=== PATIENT | male | born 1950 | race Caucasian/White ===

== ENCOUNTER 2017-05-03 09:58 | Inpatient (IN) | payer MEDICARE, BC ==
--- NOTE | 2017-05-03 10:12 | ER Document Report ---
ED General - General Stated Complaint: CHEST PAIN Time Seen by Provider: 05/03/17 10:05 Mode of Arrival: Ambulatory Information source: Patient Notes: 66-year-old male presents with complaints of cough fevers generalized malaise and confusion. Patient notes he has been coughing for the last couple days states he has not been feeling well is little confused patient denies any nausea or vomiting Patient noted to be febrile prior to arrival TRAVEL OUTSIDE OF THE [place] IN LAST 30 DAYS: No - HPI Onset: Other - 3 days Onset/Duration: Persistent Quality of pain: Achy Severity: Mild Pain Level: 1 Associated symptoms: Productive cough, Fever, Shortness of breath, Other Exacerbated by: Denies Relieved by: Denies Similar symptoms previously: No Recently seen / treated by doctor: No - Related Data Allergies/Adverse Reactions: hydroxychloroquine [From Plaquenil] Allergy (Verified 05/03/17 11:35) FULL BODY RASH FOR 3 MONTHS varenicline [From Chantix] Allergy (Verified 05/03/17 11:35) RASH Home Medications: Current Home Medications Acyclovir [Acyclovir 400 mg Tablet] 400 mg PO BID 05/03/17 [History] Adalimumab [Humira] 40 mg INJ [id number] 05/03/17 [History] Atorvastatin Calcium [Lipitor 40 mg Tablet] 40 mg PO DAILY 05/03/17 [History] Buspirone HCl [Buspar 10 mg Tablet] 10 mg PO BID 05/03/17 [History] Escitalopram Oxalate [Lexapro] 20 mg PO DAILY 05/03/17 [History] Lisinopril/Hydrochlorothiazide [Lisinopril-Hctz 20-25 mg Tab] 1 tab PO DAILY [History] Verapamil HCl [Verapamil Sr] 240 mg PO DAILY 05/03/17 [History] Past Medical History - Social History Smoking Status: Never Smoker Cigarette use (# per day): No Chew tobacco use (# tins/day): No Smoking Education Provided: No Family History: Reviewed & Not Pertinent - Past Medical History Cardiac Medical History: Reports: Hx Hypertension Denies: Hx Coronary Artery Disease, Hx Heart Attack Pulmonary Medical History: Denies: Hx Asthma, Hx Bronchitis, Hx COPD - SMOKER, Hx Pneumonia Neurological Medical History: Denies: Hx Cerebrovascular Accident, Hx Seizures Musculoskeltal Medical History: Reports Hx Arthritis - RHEUMATOID, PELIMDROMIC RHEUMATISM - Immunizations Hx Diphtheria, Pertussis, Tetanus Vaccination: - UNSURE Hx Pneumococcal Vaccination: 02/04/14 Review of Systems - Review of Systems Notes: REVIEW OF SYSTEMS: CONSTITUTIONAL : Admits fever recent illness EENT: Denies eye, ear, throat, or mouth pain or symptoms. Denies nasal or sinus congestion or discharge. Denies throat, tongue, or mouth swelling or difficulty swallowing. CARDIOVASCULAR: Denies chest pain. Denies palpitations or racing or irregular heart beat. Denies ankle edema. RESPIRATORY: Admits to cough congestion GASTROINTESTINAL: Denies abdominal pain or distention. Denies nausea, vomiting , or diarrhea. Denies blood in vomitus, stools, or per rectum. Denies black, tarry stools. Denies constipation. GENITOURINARY: Denies difficulty urinating, painful urination, burning, frequency, blood in urine, or discharge. MUSCULOSKELETAL: Denies back or neck pain or stiffness. Denies joint pain or swelling. SKIN: Denies rash, lesions or sores. HEMATOLOGIC : Denies easy bruising or bleeding. LYMPHATIC: Denies swollen, enlarged glands. NEUROLOGICAL: Denies confusion or altered mental status. Denies passing out or loss of consciousness. Denies dizziness or lightheadedness. Denies headache. Denies weakness or paralysis or loss of use of either side. Denies problems with gait or speech. Denies sensory loss, numbness, or tingling. Denies seizures. PSYCHIATRIC: Denies anxiety or stress. Denies depression, suicidal ideation, or homicidal ideation. ALL OTHER SYSTEMS REVIEWED AND NEGATIVE. PHYSICAL EXAMINATION: GENERAL: Ill-appearing HEAD: Atraumatic, normocephalic. EYES: Pupils equal round and reactive to light, extraocular movements intact, conjunctiva are normal. ENT: Nares patent, oropharynx clear without exudates. Moist mucous membranes. NECK: Normal range of motion, supple without lymphadenopathy LUNGS: Coarse rhonchi HEART: Tachycardic ABDOMEN: Soft, nontender, nondistended abdomen. No guarding, no rebound. No masses appreciated. Female : deferred Musculoskeletal: Normal range of motion, no pitting or edema. No cyanosis. NEUROLOGICAL: Cranial nerves grossly intact. Normal speech, normal gait. Normal sensory, motor exams PSYCH: Normal mood, normal affect. SKIN: Warm, Dry, normal turgor, no rashes or lesions noted. Dictation was performed using [employer] voice recognition software Physical Exam - Vital signs Vitals: Temp Pulse Resp BP Pulse Ox 100.5 F H 93 21 H 125/64 95 05/03/17 10:25 05/03/17 10:25 05/03/17 10:25 05/03/17 10:25 05/03/17 10:25 Course - Re-evaluation Re-evalutation: 05/03/17 13:00 Patient was placed on oxygen, his presentation is consistent with sepsis secondary from pneumonia. Patient was started on antibiotics given IV fluids and will be admitted to the hospitalist service - Vital Signs Vital signs: Temp Pulse Resp BP Pulse Ox 100.1 F 93 20 114/67 95 05/03/17 11:57 05/03/17 10:25 05/03/17 12:01 05/03/17 12:01 05/03/17 12:01 - Laboratory Result Diagrams: 05/03/17 10:28 05/03/17 10:28 Laboratory results interpreted by me: 05/03/17 05/03/17 05/03/17 10:28 10:28 10:28 WBC 13.3 H RBC 3.34 L Hgb 12.3 L Hct 35.9 L MCV 107 H MCH 36.7 H Seg Neuts % (Manual) 87 H Lymphocytes % (Manual) 4 L Abs Neuts (Manual) 11.6 H VBG pH 7.48 H Sodium 126.9 L Chloride 91 L BUN 21 H Glucose 125 H Urine Protein Urine Ketones Urine Blood Urine Ascorbic Acid 05/03/17 10:48 WBC RBC Hgb Hct MCV MCH Seg Neuts % (Manual) Lymphocytes % (Manual) Abs Neuts (Manual) VBG pH Sodium Chloride BUN Glucose Urine Protein 100 H Urine Ketones TRACE H Urine Blood MODERATE H Urine Ascorbic Acid 40 H - Diagnostic Test Radiology reviewed: Image reviewed, Reports reviewed - Pneumonia Critical Care Note - Critical Care Note Total time excluding time spent on procedures (mins): 33 Comments: 33 minutes of critical care time spent in direct contact evaluating and reevaluating the patient, treating symptoms, reviewing labs and studies and speaking with family and consultants excluding any procedures Discharge - Discharge Clinical Impression: Pneumonia Qualifiers: Pneumonia type: due to unspecified organism Laterality: left Lung location: upper lobe of lung Qualified Code(s): J18.1 - Lobar pneumonia, unspecified organism Sepsis Qualifiers: Sepsis type: sepsis due to unspecified organism Qualified Code(s): A41.9 - Sepsis, unspecified organism Condition: Stable Disposition: ADMITTED INPATIENT Admitting Provider: Hospitalist Unit Admitted: Telemetry
--- NOTE | 2017-05-03 10:42 | RADIOLOGY REPORT (SQ) ---
EXAM DESCRIPTION: CHEST SINGLE VIEW COMPLETED DATE/TIME: 05/03/2017 10:32 am REASON FOR STUDY: fever COMPARISON: None. EXAM PARAMETERS: NUMBER OF VIEWS: One view. TECHNIQUE: Single frontal radiographic view of the chest acquired. RADIATION DOSE: NA LIMITATIONS: None. FINDINGS: LUNGS AND PLEURA: Dense consolidation in the lateral left upper lobe. Right lung clear. No pleural effusion. No pneumothorax. MEDIASTINUM AND HILAR STRUCTURES: No masses. Contour normal. HEART AND VASCULAR STRUCTURES: Heart normal in size. Normal vasculature. BONES: No acute findings. HARDWARE: None in the chest. OTHER: No other significant finding. IMPRESSION: DENSE CONSOLIDATION IN THE LEFT UPPER LOBE LIKELY DUE TO PNEUMONIA. UNDERLYING MASS CAN NOT BE EXCLUDED. RECOMMEND FOLLOW-UP CHEST X-RAY AFTER TREATMENT TO CONFIRM CLEARING OF THIS FINDING . TECHNICAL DOCUMENTATION: JOB ID: [id number] [employer]- All Rights Reserved
[2017-05-03 10:48] LABS: HEMATOCRIT 35.9 % (37.9-51.0); HEMOGLOBIN 12.3 g/dL (13.5-17.0); MEAN CORPUSCULAR HEMOGLOBIN 36.7 pg (27.0-33.4); MEAN CORPUSCULAR HGB CONC 34.2 g/dL (32.0-36.0); MEAN CORPUSCULAR VOLUME 107 fl (80-97); PLATELET COUNT 215 10^3/uL (150-450); RED BLOOD COUNT 3.34 10^6/uL (4.35-5.55); RED CELL DISTRIBUTION WIDTH 12.5 % (11.5-14.0); WHITE BLOOD COUNT 13.3 10^3/uL (4.0-10.5)
[2017-05-03 10:52] LABS: INTERNATIONAL RATION (INR) 0.96; PROTHROMBIN TIME 13.4 SEC (11.4-15.4); VENOUS BLOOD HCO3 27.7 mmol/L (20-32); VENOUS BLOOD PCO2 37.9 mmHg (35-63); VENOUS BLOOD PH 7.48 (7.30-7.42)
[2017-05-03 11:07] LABS: ABSOLUTE LYMPHOCYTES# (MANUAL) 0.5 10^3/uL (0.5-4.7); ABSOLUTE MONOCYTES # (MANUAL) 1.1 10^3/uL (0.1-1.4); ABSOLUTE NEUTROPHILS# (MANUAL) 11.6 10^3/uL (1.7-8.2); ANISOCYTOSIS 2+; BASOPHILS % (MANUAL) 1 % (0-2); EOSINOPHILS % (MANUAL) 0 % (0-6); LYMPHOCYTES % (MANUAL) 4 % (13-45); MONOCYTES % (MANUAL) 8 % (3-13); PLATELET COMMENT ADEQUATE; PLATELET LARGE PRESENT; POLYCHROMASIA SLIGHT; SEGMENTED NEUTROPHILS % (MAN) 87 % (42-78); TOTAL CELLS COUNTED 100; TOXIC GRANULATION SLIGHT; TOXIC VACUOLATION PRESENT
[2017-05-03 11:11] LABS: ALANINE AMINOTRANSFERASE 29 U/L (21-72); ALBUMIN 3.7 g/dL (3.5-5.0); ALKALINE PHOSPHATASE 38 U/L (38-126); ANION GAP 11 (5-19); ASPARTATE AMINO TRANSFERASE 27 U/L (17-59); BILIRUBIN,DIRECT 0.3 mg/dL (0.0-0.4); BILIRUBIN,TOTAL 0.6 mg/dL (0.2-1.3); BLOOD UREA NITROGEN 21 mg/dL (7-20); CALCIUM 9.3 mg/dL (8.4-10.2); CARBON DIOXIDE 25 mmol/L (22-30); CHLORIDE 91 mmol/L (98-107); GLUCOSE 125 mg/dL (75-110); POTASSIUM 3.9 mmol/L (3.6-5.0); SODIUM 126.9 mmol/L (137-145); TOTAL PROTEIN 6.4 g/dL (6.3-8.2)
[2017-05-03] MEDS ORDERED: NORMAL SALINE 1000 ML 1,000 ML IV ONE (11:23)
[2017-05-03 11:25] LABS: APPEARANCE,URINE SLIGHTLY-CLOUDY; BILIRUBIN,URINE NEGATIVE (NEGATIVE); COLOR,URINE YELLOW; GLUCOSE, URINE NEGATIVE (NEGATIVE); KETONES,URINE TRACE mg/dL (NEGATIVE); LEUKOCYTE ESTERASE,URINE NEGATIVE (NEGATIVE); NITRITE,URINE NEGATIVE (NEGATIVE); PROTEIN,URINE 100 mg/dL (NEGATIVE); URINE SPECIFIC GRAVITY 1.028; UROBILINOGEN,URINE NEGATIVE mg/dL (<2.0)
[2017-05-03] MEDS ORDERED: CEFTRIAXONE 1 GM/D5W RTU 1 GM/50 ML RTUPB IV ONE (11:37)
[2017-05-03] MEDS: NORMAL SALINE 1000 ML 1,000 ML IV PRN ×2 (11:40→13:48)
[2017-05-03] MEDS ORDERED: ACETAMINOPHEN 325 MG TABLET PO PRN (11:53)
[2017-05-03 12:33] LABS: A TYPE INFLUENZA AG NEGATIVE (NEGATIVE); B INFLUENZA AG NEGATIVE (NEGATIVE)
[2017-05-03] MEDS: AZITHROMYCIN 500 MG in DEXTROSE 5%-WATER 250 ML IV SCH (13:49)
[2017-05-03] MEDS: HEPARIN SOD (PORCINE) 5,000 UNIT/ML 1 ML SYRINGE SUBCUT SCH ×2 (13:50→21:33)
[2017-05-03] MEDS ORDERED: FLUTICASONE NASAL SPRAY 50 MCG/SPRY 120 SPRAY/16 GM NASL ONE (17:26)
[2017-05-03] MEDS ORDERED: NICOTINE 14 MG/24 HR PATCH.TD24 TD PRN (17:27)
[2017-05-03] MEDS ORDERED: THIAMINE HCL 100 MG TABLET PO ONE (17:28)
[2017-05-03] MEDS ORDERED: FOLIC ACID 1 MG TABLET PO ONE (17:28)
[2017-05-03] MEDS ORDERED: VERAPAMIL HCL 240 MG PO SCH (17:30)
[2017-05-03] MEDS: BEER PO SCH ×3 (17:45→21:35)
[2017-05-03] MEDS: BUSPIRONE HCL 10 MG TABLET PO SCH (18:00)
[2017-05-03] MEDS: DOCUSATE SODIUM 100 MG CAPSULE PO SCH (18:01)
--- NOTE | 2017-05-03 18:48 | HISTORY AND PHYSICAL E ---
History and Physical NAME: CIARA EATON : 1950 AGE: 66Y ADMITTED: 05/03/2017 ROOM: 532 PRIMARY CARE PROVIDER: Dr. Price. CHIEF COMPLAINT: Shortness of breath. HISTORY OF PRESENT ILLNESS: The patient is a 66-year-old male with a past medical history of hypertension, tobacco dependency and rheumatoid arthritis. The patient presented to the emergency department with a chief complaint of shortness of breath. Apparently the patient has had complaints of cough, fevers, general malaise and some confusion, which has been going on for the past couple of days. The patient stated he had not been feeling well and stated that he had had a fever and felt confused with this. The patient denied any actual vomiting but admitted to nausea. The patient had a very strong cough and was producing significant amount of yellow sputum. The patient denies any difficulty swallowing, no dizziness, chest pain or shortness of breath. The patient stated he was so concerned with how poorly he felt that he had actually not smoked today. Upon presentation the patient was found to have a low-grade temp of 100.3, tachycardic and tachypneic. The patient was given supplemental O2, Tylenol and covered with Rocephin and was referred to the hospitalist for admission and management. Upon my examination of the patient, the patient denies any previous pneumonia. The patient denies any sick contacts. The patient stated that his symptoms have been ever increasing over the past 4 days. The patient states that he has not had much sleep because he has felt so poorly and, therefore, feels delirious. One element of concern is the patient is alcohol dependent and drinks up to 8-10 ounces of vodka a day, however, do suspect there is more than this. I have asked the patient if he would like to stop drinking, and he declines this as well as declines stopping smoking, therefore, will supplement both alcohol and a nicotine patch for now. PAST MEDICAL HISTORY: Remarkable for: 1. Hypertension. 2. Chronic obstructive pulmonary disease. 3. Gastroesophageal reflux disease. 4. History of effectively treated H. pylori. 5. Osteoarthritis. 6. Rheumatoid arthritis. 7. Palindromic rheumatism. 8. Benign prostatic hyperplasia. 9. Alcohol dependency. PAST SURGICAL HISTORY: Remarkable for: 1. EGD. 2. Left shoulder surgery. 3. Left inguinal hernia repair. 4. 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 5. Appendectomy. 6. Tonsillectomy. ALLERGIES: HYDROXYCHLOROQUINE VARENICLINE. HOME MEDICATIONS: 1. Verapamil 240 mg p.o. daily. 2. Lisinopril/hydrochlorothiazide 20/25 one tablet p.o. daily. 3. Lexapro 20 mg p.o. daily. 4. BuSpar 10 mg p.o. b.i.d. 5. Lipitor 40 mg p.o. daily. 6. Humira 40 mg injection every 2 weeks. 7. Acyclovir 400 mg p.o. b.i.d. SOCIAL HISTORY: The patient currently resides at home. He is retired. 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 The patient denies any illicit drug use. The patient admits to alcohol dependence, stating that he gets shaky if he goes several hours without a drink. The patient also has tobacco dependency, smoking once a day for which he has done for a little over 40 years, escalating 40 pack years. FAMILY MEDICAL HISTORY: The patient's mother is alive with no reportable medical problems. The patient's father is of uncertain causes. The patient does have siblings who are healthy. The patient has no children. REVIEW OF SYSTEMS: CONSTITUTIONAL: The patient does admit to fevers, chills, weakness, loss of appetite, no dizziness. INTEGUMENTARY: The patient denies any itching, diaphoresis. No rash or bruising. HEENT: The patient denies any vision changes, hearing loss which the patient is deaf in his left ear but nothing acute. Denies any sore throat. Does admit to some headache but no nasal drainage. CARDIOVASCULAR: The patient denies any chest pain, edema or heart palpitations. RESPIRATORY: The patient admits to cough, sputum production and an episode of hemoptysis. GASTROINTESTINAL: The patient denies any diarrhea, abdominal pain, bloating, hematemesis, constipation, melena, hematochezia. He does admit to nausea. GENITOURINARY: Denies any hematuria, pyuria or dysuria. MUSCULOSKELETAL: Denies acute joint pains but has chronic pain associated with his RA. NEUROLOGIC: No seizures or loss of consciousness. The patient does have fine tremors without alcohol. HEMATOLOGIC: The patient denies any mary bleeding or easy bruising. ENDOCRINE: Denies any recent weight changes. PSYCHIATRIC: Denies suicidal or homicidal ideation. The patient is adamant he does not want to abstain from alcohol. The rest of the review of the other organ systems is negative. PHYSICAL EXAMINATION: GENERAL: On examination, the patient is a well-developed, well-nourished 66-year-old male who is awake and alert. He is oriented to person, place, time and situation. He is verbal, conversational. He does not appear to be in any acute distress. VITAL SIGNS: Temperature 99.5, pulse 102, respirations 20, blood pressure 140/72, oxygen saturation is 95% on room air. SKIN: Warm and dry. No rash. He is not diaphoretic. HEENT: Pupils are equal, round, and reactive to light and accommodation. Conjunctivae are pink. Sclerae are not icteric. There are no mouth lesions. Tongue is midline. NECK: Supple. No JVD. No palpable lymphadenopathy or thyromegaly. CARDIOVASCULAR: Heart is regular. There is no murmur or rub. CHEST: The patient does have rhonchorous breath sounds in the upper lung dale. ABDOMEN: Soft, nontender, nondistended. Bowel sounds are present. No palpable organomegaly. BACK: No CVA tenderness or sacral edema. EXTREMITIES: No clubbing, cyanosis, edema or peripheral signs of embolization. There are +1 pedal pulses are noted bilaterally. PSYCHIATRIC: The patient is a little delayed. DIAGNOSTICS: Lab values are as follows: Hematology on 05/03/2017: WBC 13.3, hemoglobin 12.3, hematocrit 35.9, platelet count is 215,000. Coagulation obtained on 05/03/2017: PT is 13.4, INR 0.96. Venous blood gas obtained on 05/03/2017: pH is 7.48, PCO2 37.9, bicarb is 27.7. Chemistry obtained on 03/21/2017: Sodium is 126, potassium 3.9, chloride is 91, carbon dioxide is 25, BUN 21, creatinine 0.9, glucose 125, lactic acid 0.9, calcium is 9.3, bilirubin is 0.6, AST is 27, ALT is 29, alkaline phos 38, total protein 6.4, albumin 3.7. Urinalysis obtained on 05/03/2017: Color yellow appearance, slightly cloudy, pH 6.0, specific gravity 1.028, protein 100, glucose negative, ketones trace, occult blood moderate, nitrite negative, bilirubin negative, urobilinogen negative, leukocyte esterase negative. WBC 4, RBC 66, casts 3, epithelial squamous cells less than 1, mucus few, ascorbic acid is 40. Serology obtained on 05/03/2017: Influenza A and B are negative. Blood cultures obtained on 05/03/2017 revealed no growth. Urine culture obtained on 05/03/2017 is pending. Legionella obtained on 05/03/2017 is pending. Sputum culture obtained on 05/03/2017 is pending. Chest x-ray obtained on 05/03/2017 reveals dense consolidation of the left upper lobe likely due to pneumonia. EKG obtained on 05/03/2017 reveals sinus rhythm. IMPRESSION AND PLAN: 1. Left upper lobe community-acquired pneumonia. Will cover the patient with Rocephin and Zithromax for now. Await for culture and sensitivity and follow. Will add Mucinex and flutter valve as well as incentive spirometry. The patient does not appear dyspneic, therefore, will hold nebs for now. 2. Chronic obstructive pulmonary disease. Will continue the patient's home inhalers. Additionally will add Singulair and Flonase. The patient is not wheezing. Once again, will hold nebs for now, attempt to use them sparingly at this point. 3. Hypertension. Will resume the patient's home blood pressure medication. 4. Benign prostatic hyperplasia. Will continue the patient's home meds. 5. Sepsis secondary to #1. The patient has received boluses in the emergency department. This is evidenced by white count, febrile state and confusion. Will repeat CBC in the a.m. Fortunately the patient was not making lactate. 6. Hyponatremia. Most likely due to the patient's chronic alcoholism or possible volume issue. The patient did receive fluid in the emergency department. Will repeat CBC in the a.m. Will not add continuous fluids at the moment, as the patient clinically appears hydrated and this may be a further source of agitation. 7. Alcohol dependency, continuous. I am concerned given the patient's respiratory status initiating a CIWA withdrawal protocol. The patient does appear to be on the edge at the moment of impending withdrawal. Will add a beer q.i.d. If this does not curb this, will proceed with CIWA protocol with p.r.n. benzodiazepines and so forth. Once again, quite hesitant to do this given the patient's respiratory status. Hopefully the beer supplementation will curb this. DISPOSITION: The patient is a FULL CODE. Pending patient's symptomatology and diagnostic findings, will reevaluate in the a.m. Will admit the patient to inpatient telemetry, as the patient's expected length of stay should surpass 2 midnights. Time spent on this admission including assessment, plan, physical examination, patient education, and review of records is 60 minutes. DICTATING PHYSICIAN: MELECIO AGUILAR NP [id number] PHY#: [id number] ID: [id number] JOB#: [id number] ACCT: [id number] cc:MELECIO AGUILAR NP, NADIA M.D. >
[2017-05-03] MEDS: GUAIFENESIN 600 MG TABLET.SA PO SCH (21:34)
[2017-05-03] MEDS: FLUTICASONE NASAL SPRAY 50 MCG/SPRY 120 SPRAY/16 GM NASL SCH (21:34)
[2017-05-03] MEDS: MONTELUKAST SODIUM 10 MG TABLET PO SCH (21:34)
[2017-05-03] MEDS: ACYCLOVIR 200 MG CAPSULE PO SCH (21:34)
[2017-05-03] MEDS: LORAZEPAM 1 MG TABLET PO PRN (23:00)
[2017-05-04] MEDS: MAGNESIUM SULFATE/D5W 1 GM/100 ML RTUPB IV SCH ×3 (01:48→05:18)
[2017-05-04] MEDS: HEPARIN SOD (PORCINE) 5,000 UNIT/ML 1 ML SYRINGE SUBCUT SCH ×3 (05:18→21:10)
[2017-05-04 07:03] LABS: HEMATOCRIT 33.4 % (37.9-51.0); HEMOGLOBIN 11.6 g/dL (13.5-17.0); MEAN CORPUSCULAR HEMOGLOBIN 37.6 pg (27.0-33.4); MEAN CORPUSCULAR HGB CONC 34.7 g/dL (32.0-36.0); MEAN CORPUSCULAR VOLUME 108 fl (80-97); PLATELET COUNT 182 10^3/uL (150-450); RED BLOOD COUNT 3.09 10^6/uL (4.35-5.55); RED CELL DISTRIBUTION WIDTH 12.7 % (11.5-14.0); WHITE BLOOD COUNT 9.3 10^3/uL (4.0-10.5)
[2017-05-04 07:28] LABS: ANION GAP 6 (5-19); BLOOD UREA NITROGEN 16 mg/dL (7-20); CALCIUM 8.1 mg/dL (8.4-10.2); CARBON DIOXIDE 26 mmol/L (22-30); CHLORIDE 92 mmol/L (98-107); GLUCOSE 106 mg/dL (75-110); POTASSIUM 3.7 mmol/L (3.6-5.0); SODIUM 124.3 mmol/L (137-145)
[2017-05-04] MEDS: ACYCLOVIR 200 MG CAPSULE PO SCH ×2 (09:26→21:15)
[2017-05-04] MEDS: ATORVASTATIN CALCIUM 40 MG TABLET PO SCH (09:26)
[2017-05-04] MEDS: BUSPIRONE HCL 10 MG TABLET PO SCH ×2 (09:27→19:45)
[2017-05-04] MEDS: FOLIC ACID 1 MG TABLET PO SCH (09:28)
[2017-05-04] MEDS: DOCUSATE SODIUM 100 MG CAPSULE PO SCH ×2 (09:28→19:45)
[2017-05-04] MEDS: FLUTICASONE NASAL SPRAY 50 MCG/SPRY 120 SPRAY/16 GM NASL SCH ×2 (09:28→21:15)
[2017-05-04] MEDS: GUAIFENESIN 600 MG TABLET.SA PO SCH ×2 (09:28→21:09)
[2017-05-04] MEDS: VERAPAMIL HCL 240 MG TABLET.SA PO SCH (09:28)
[2017-05-04] MEDS: THIAMINE HCL 100 MG TABLET PO SCH (09:29)
[2017-05-04] MEDS ORDERED: CEFTRIAXONE 1 GM/D5W RTU 1 GM/50 ML RTUPB IV SCH (10:00)
[2017-05-04] MEDS ORDERED: THIAMINE HCL 100 MG TABLET PO SCH (10:00)
[2017-05-04] MEDS ORDERED: ALBUTEROL SULFATE 0.083% NEB 2.5 MG/3 ML AMPUL NEB PRN (10:03)
[2017-05-04] MEDS ORDERED: PREDNISONE 20 MG TABLET PO ONE (11:00)
[2017-05-04] MEDS ORDERED: IPRATROPIUM/ALBUTEROL 0.5-2.5 MG/3 ML AMPUL NEB ONE (11:00)
[2017-05-04] MEDS ORDERED: IPRATROPIUM/ALBUTEROL 0.5-2.5 MG/3 ML AMPUL NEB SCH (14:00)
[2017-05-04] MEDS: BEER PO SCH ×3 (14:50→22:31)
[2017-05-04] MEDS: AZITHROMYCIN 500 MG in DEXTROSE 5%-WATER 250 ML IV SCH (14:56)
--- NOTE | 2017-05-04 16:57 | PDOC PROGRESS REPORT ---
Subjective Progress Note for:: 05/04/17 Subjective:: 66-year-old male past medical history of alcoholism. Came in with complaints of cough, fever, confusion. Patient had a x-ray that showed middle lobe pneumonia but cannot rule out mass. Patient was started on supplemental O2 antibiotics and alcohol withdrawal protocol. Patient was not started on nebulizers or steroids time of admission at I had added the earlier today due to his decrease oxygen saturation with he increase O2 demand. Patient continued to require increased amounts of oxygen with decreased O2 sats so I have requested he be transferred to IMCU, obtain an ABG, placed on BiPAP if needed, will get a CT of his chest to r/o PE. Reason For Visit: CAP Physical Exam Vital Signs: Temp Pulse Resp BP Pulse Ox 98.5 F 83 19 104/54 L 86 L 05/04/17 16:00 05/04/17 16:00 05/04/17 16:00 05/04/17 16:00 05/04/17 16:00 Intake & Output 05/03/17 05/04/17 05/05/17 06:59 06:59 06:59 Intake Total 300 615 Output Total 0 575 Balance 300 40 Weight 81.1 kg General appearance: PRESENT: mild distress, well-developed, well-nourished Head exam: PRESENT: atraumatic, normocephalic Eye exam: PRESENT: conjunctiva pink, EOMI, PERRLA. ABSENT: scleral icterus Ear exam: PRESENT: normal external ear exam Mouth exam: PRESENT: moist, tongue midline Neck exam: ABSENT: carotid bruit, JVD, lymphadenopathy, thyromegaly Respiratory exam: PRESENT: accessory muscle use, chest wall tenderness, decreased breath sounds, rales, rhonchi, tachypnea, wheezes Cardiovascular exam: PRESENT: RRR. ABSENT: diastolic murmur, rubs, systolic murmur Pulses: PRESENT: normal dorsalis pedis pul Vascular exam: PRESENT: normal capillary refill GI/Abdominal exam: PRESENT: normal bowel sounds, soft. ABSENT: distended, guarding, mass, organolmegaly, rebound, tenderness Rectal exam: PRESENT: deferred Extremities exam: PRESENT: full ROM. ABSENT: calf tenderness, clubbing, pedal edema Musculoskeletal exam: PRESENT: ambulatory Neurological exam: PRESENT: alert, awake, oriented to person, oriented to place , oriented to time, oriented to situation, CN II-XII grossly intact. ABSENT: motor sensory deficit Psychiatric exam: PRESENT: anxious, appropriate affect, normal mood. ABSENT: homicidal ideation, suicidal ideation Skin exam: PRESENT: dry, intact, warm. ABSENT: cyanosis, rash Results Laboratory Results: 05/04/17 06:53 05/04/17 06:53 05/03/17 05/04/17 05/04/17 23:00 06:53 06:53 WBC 9.3 RBC 3.09 L Hgb 11.6 L Hct 33.4 L MCV 108 H MCH 37.6 H MCHC 34.7 RDW 12.7 Plt Count 182 Sodium 124.3 L Potassium 3.7 Chloride 92 L Carbon Dioxide 26 Anion Gap 6 BUN 16 Creatinine 0.99 Est GFR ( Amer) > 60 Est GFR (Non-Af Amer) > 60 Glucose 106 Calcium 8.1 L Magnesium 1.5 L Impressions: Chest X-Ray 05/03/17 10:07 IMPRESSION: DENSE CONSOLIDATION IN THE LEFT UPPER LOBE LIKELY DUE TO PNEUMONIA. UNDERLYING MASS CANNOT BE EXCLUDED. RECOMMEND FOLLOW-UP CHEST X- RAY AFTER TREATMENT TO CONFIRM CLEARING OF THIS FINDING. Assessment & Plan - Diagnosis (1) Dyspnea Qualifiers: Dyspnea type: acute respiratory distress Qualified Code(s): R06.03 - Acute respiratory distress Is this a current diagnosis for this admission?: Yes Plan: Obtain an ABG, assess for need of BiPAP, will get a chest CT to rule out PE. Continue nebulizers, steroids, antibiotics. We will have nurse to call the ABGs in 2 hospitalists when resulted. Transfer patient to [facility]. Titrate O2 keep oxygen greater than 90% monitor closely for DTs, pressure patient on telemetry (3) Pneumonia Qualifiers: Pneumonia type: due to unspecified organism Laterality: left Lung location: upper lobe of lung Qualified Code(s): J18.1 - Lobar pneumonia, unspecified organism Is this a current diagnosis for this admission?: Yes (4) Sepsis Qualifiers: Sepsis type: sepsis due to unspecified organism Qualified Code(s): A41.9 - Sepsis, unspecified organism Is this a current diagnosis for this admission?: Yes Plan: Patient to have IV antibiotics, steroids, nebulizers, O2 as needed to titrate to keep sats greater than 90% rule out pulmonary embolus, will obtain repeat blood cultures if patient spikes a temp, continue to monitor cultures - Plan Summary Plan Summary: Patient have a change in status requiring increased amounts of 2 unable to stabilize patient on the floor so we will transfer him to intermediate care for close monitoring of his O2 sats and heart rate, and possible need of BiPAP. Monitor ABGs, aggressive pulmonary toiletry
[2017-05-04] MEDS ORDERED: METHYLPREDNISOLONE INJ 125 MG/2 ML SDV IV SCH (17:00)
[2017-05-04 17:16] LABS: ARTERIAL BLOOD BASE EXCESS -0.1 mmol/L; ARTERIAL BLOOD H2CO3 0.89 mmol/L (1.05-1.35); ARTERIAL BLOOD HCO3 22.4 mmol/L (20-26); ARTERIAL BLOOD O2 SATURATION 84.3 % (94-98); ARTERIAL BLOOD PCO2 29.5 mmHg (35-45); ARTERIAL BLOOD PO2 43.5 mmHg (80-100); ARTERIAL BLOOD TOTAL CO2 23.3 mmol/L (23-27)
[2017-05-04 17:33] LABS: ARTERIAL BLOOD FIO2 6L
--- NOTE | 2017-05-04 17:41 | RADIOLOGY REPORT (SQ) ---
EXAM DESCRIPTION: CHEST SINGLE VIEW COMPLETED DATE/TIME: 05/04/2017 5:30 pm REASON FOR STUDY: r/o chf COMPARISON: 05/03/2017 EXAM PARAMETERS: NUMBER OF VIEWS: One view. TECHNIQUE: Single frontal radiographic view of the chest acquired. RADIATION DOSE: NA LIMITATIONS: None. FINDINGS: LUNGS AND PLEURA: Increased consolidation in the left upper lobe with development of new a lveolar opacity -consolidation in the right upper lobe. Mild interstitial prominence. No significan t effusion. No pneumothorax. MEDIASTINUM AND HILAR STRUCTURES: Stable. HEART AND VASCULAR STRUCTURES: Stable cardiac enlargement. BONES: No acute findings. HARDWARE: None in the chest. OTHER: No other significant finding. IMPRESSION: Increased consolidation in the left upper lobe with development of new alveolar opacity -consolidation in the right upper lobe. Mild interstitial prominence. No significant effusion. TECHNICAL DOCUMENTATION: JOB ID: [id number] [employer]- All Rights Reserved
--- NOTE | 2017-05-04 18:52 | RADIOLOGY REPORT (SQ) ---
EXAM DESCRIPTION: CTA CHEST COMPLETED DATE/TIME: 05/04/2017 6:27 pm REASON FOR STUDY: r/omass or PE COMPARISON: None. TECHNIQUE: CT scan of the chest performed using helical scanning technique with dynamic intravenous contrast injection. Images reviewed with lung, soft tissue and bone windows. Reconstructed coronal and sagittal MPR images reviewed. Additional 3 dimensional post-processing performed to develop Maximal Intensity Projection images ([place] P). All images stored on PACS. All CT scanners at this facility use dose modulation, iterative reconstruction, and/or weight based d osing when appropriate to reduce radiation dose to as low as reasonably achievable (ALARA). [facility]: Dose Right [facility]: CareDose [facility]: Dose Right [facility]: Teradose 4D [facility]: Smart [employer] CONTRAST TYPE AND DOSE: contrast/concentration: Isovue 370.00 mg/ml; Total Contrast Delivered: 72.0 ml; Total Saline Delivered: 80.1 ml Contrast bolus optimized for the pulmonary arteries. Not diagnostic for the aorta. RENAL FUNCTION: GFR > 60. RADIATION DOSE: CT Rad equipment meets quality standard of care and radiation dose reduction techniq ues were employed. CTDIvol: 14.8 - 39.7 mGy. DLP: 622 mGy-cm. . LIMITATIONS: None. FINDINGS: LUNGS AND PLEURA: Dense consolidation is present in the lateral aspect of the left upper l obe. Patchy consolidation is present in the central and lateral aspects of the right upper lobe. In terstitial and ground-glass opacities are present throughout both upper lobes. Linear atelectasis is present in both lower lobes. Small bilateral pleural effusions are present. No pneumothorax. Smal l apical subpleural blebs. Small areas of paraseptal emphysema are present along the mediastinal bor ders. AORTA AND GREAT VESSELS: 4.5 cm ascending aortic aneurysm. Contrast bolus not optimized for the aort a. HEART: No pericardial effusion. No significant coronary artery calcifications. PULMONARY ARTERIES: No emboli visualized in the main pulmonary arteries or the segmental branches. HILAR AND MEDIASTINAL STRUCTURES: Diffuse mediastinal adenopathy, reactive appearing. HARDWARE: None in the chest. UPPER ABDOMEN: Left renal cyst. Mild retroperitoneal fat stranding. Limited exam. THYROID AND OTHER SOFT TISSUES: No masses. BONES: No acute finding. 3D MIPS: Confirm above findings. OTHER: No other significant finding. IMPRESSION: Dense consolidation is present in the lateral aspect of the left upper lobe. Patchy con solidation is present in the central and lateral aspects of the right upper lobe. Interstitial and g round-glass opacities are present throughout both upper lobes. Small bilateral pleural effusions ar e present. Diffuse mediastinal adenopathy, reactive appearing. Overall appearance suggests acute infe ctious etiology. No emboli visualized in the main pulmonary arteries or the segmental branches. COMMENT: Quality ID # [id number]: Final reports with documentation of one or more dose reduction techniques (e.g., Automated exposure control, adjustment of the mA and/or kV according to patient size, use of iterative reconstruction technique) TECHNICAL DOCUMENTATION: JOB ID: [id number] [place]-72 2010 [email or web address]- All Rights Reserved
[2017-05-04] MEDS ORDERED: VANCOMYCIN HCL 0 MG in DEXTROSE 5%-WATER 250 ML IV NR (19:30)
[2017-05-04] MEDS ORDERED: LORAZEPAM INJ 2 MG/1 ML VIAL IV ONE (19:43)
[2017-05-04] MEDS: NORMAL SALINE 1000 ML 1,000 ML IV PRN (19:47)
[2017-05-04] MEDS: IPRATROPIUM/ALBUTEROL 0.5-2.5 MG/3 ML AMPUL NEB SCH (20:29)
[2017-05-04] MEDS: METHYLPREDNISOLONE INJ 125 MG/2 ML SDV IV SCH (21:08)
[2017-05-04] MEDS: PIPERACILLIN SODIUM/TAZOBACTAM 4.5 GM in NORMAL SALINE 100 ML IV SCH (21:08)
[2017-05-04] MEDS: MONTELUKAST SODIUM 10 MG TABLET PO SCH (21:10)
[2017-05-04 21:12] LABS: ARTERIAL BLOOD BASE EXCESS 2.1 mmol/L; ARTERIAL BLOOD H2CO3 0.83 mmol/L (1.05-1.35); ARTERIAL BLOOD HCO3 23.7 mmol/L (20-26); ARTERIAL BLOOD O2 SATURATION 93.2 % (94-98); ARTERIAL BLOOD PCO2 27.6 mmHg (35-45); ARTERIAL BLOOD PH 7.55 (7.35-7.45); ARTERIAL BLOOD PO2 56.7 mmHg (80-100); ARTERIAL BLOOD TOTAL CO2 24.5 mmol/L (23-27)
[2017-05-04 21:30] LABS: ARTERIAL BLOOD FIO2 50%
[2017-05-04] MEDS: VANCOMYCIN HCL 1,500 MG in DEXTROSE 5%-WATER 250 ML IV SCH (22:28)
[2017-05-05] MEDS ORDERED: METHYLPREDNISOLONE INJ 125 MG/2 ML SDV IV SCH
[2017-05-05] MEDS ORDERED: LORAZEPAM INJ 2 MG/1 ML VIAL IV ONE (01:30)
[2017-05-05 02:03] LABS: ARTERIAL BLOOD BASE EXCESS -0.5 mmol/L; ARTERIAL BLOOD FIO2 5 L; ARTERIAL BLOOD H2CO3 0.79 mmol/L (1.05-1.35); ARTERIAL BLOOD HCO3 21.2 mmol/L (20-26); ARTERIAL BLOOD O2 SATURATION 94.4 % (94-98); ARTERIAL BLOOD PCO2 26.4 mmHg (35-45); ARTERIAL BLOOD PH 7.52 (7.35-7.45); ARTERIAL BLOOD PO2 62.4 mmHg (80-100)
[2017-05-05] MEDS: METHYLPREDNISOLONE INJ 125 MG/2 ML SDV IV SCH ×4 (02:13→20:38)
[2017-05-05] MEDS: PIPERACILLIN SODIUM/TAZOBACTAM 4.5 GM in NORMAL SALINE 100 ML IV SCH ×4 (02:13→20:38)
[2017-05-05] MEDS: HEPARIN SOD (PORCINE) 5,000 UNIT/ML 1 ML SYRINGE SUBCUT SCH ×3 (05:17→23:10)
[2017-05-05] MEDS: NORMAL SALINE 1000 ML 1,000 ML IV PRN (05:42)
[2017-05-05] MEDS ORDERED: NORMAL SALINE 1000 ML 1,000 ML IV PRN ×2 (07:15→07:20)
[2017-05-05] MEDS: IPRATROPIUM/ALBUTEROL 0.5-2.5 MG/3 ML AMPUL NEB SCH ×4 (08:05→21:00)
[2017-05-05] MEDS: FOLIC ACID 1 MG TABLET PO SCH (09:56)
[2017-05-05] MEDS: ATORVASTATIN CALCIUM 40 MG TABLET PO SCH (09:57)
[2017-05-05] MEDS: GUAIFENESIN 600 MG TABLET.SA PO SCH ×2 (09:57→23:09)
[2017-05-05] MEDS: DOCUSATE SODIUM 100 MG CAPSULE PO SCH ×2 (09:57→18:07)
[2017-05-05] MEDS: VERAPAMIL HCL 240 MG TABLET.SA PO SCH (09:57)
[2017-05-05] MEDS: BUSPIRONE HCL 10 MG TABLET PO SCH ×2 (09:58→18:06)
[2017-05-05] MEDS: LORAZEPAM 1 MG TABLET PO PRN ×3 (09:58→23:21)
[2017-05-05] MEDS: THIAMINE HCL 100 MG TABLET PO SCH (09:58)
[2017-05-05] MEDS: ACYCLOVIR 200 MG CAPSULE PO SCH ×2 (09:59→23:09)
[2017-05-05] MEDS ORDERED: PREDNISONE 20 MG TABLET PO SCH (10:00)
[2017-05-05] MEDS: FLUTICASONE NASAL SPRAY 50 MCG/SPRY 120 SPRAY/16 GM NASL SCH ×2 (10:00→23:09)
[2017-05-05] MEDS: VANCOMYCIN HCL 1,500 MG in DEXTROSE 5%-WATER 250 ML IV SCH ×2 (11:23→23:32)
[2017-05-05] MEDS: BEER PO SCH ×4 (12:57→22:00)
[2017-05-05] MEDS: AZITHROMYCIN 500 MG in DEXTROSE 5%-WATER 250 ML IV SCH (14:46)
[2017-05-05] MEDS: MONTELUKAST SODIUM 10 MG TABLET PO SCH (23:09)
[2017-05-06] MEDS: PIPERACILLIN SODIUM/TAZOBACTAM 4.5 GM in NORMAL SALINE 100 ML IV SCH ×2 (02:55→09:13)
[2017-05-06] MEDS: METHYLPREDNISOLONE INJ 125 MG/2 ML SDV IV SCH ×4 (02:56→20:09)
[2017-05-06] MEDS: HEPARIN SOD (PORCINE) 5,000 UNIT/ML 1 ML SYRINGE SUBCUT SCH ×3 (05:43→22:20)
[2017-05-06] MEDS: IPRATROPIUM/ALBUTEROL 0.5-2.5 MG/3 ML AMPUL NEB SCH ×4 (08:22→20:21)
[2017-05-06] MEDS ORDERED: FUROSEMIDE INJ/PF 40 MG/4 ML SDV IV ONE (09:09)
[2017-05-06] MEDS: FLUTICASONE NASAL SPRAY 50 MCG/SPRY 120 SPRAY/16 GM NASL SCH ×2 (09:14→22:20)
[2017-05-06] MEDS: THIAMINE HCL 100 MG TABLET PO SCH (09:15)
[2017-05-06] MEDS: VERAPAMIL HCL 240 MG TABLET.SA PO SCH (09:15)
[2017-05-06] MEDS: BUSPIRONE HCL 10 MG TABLET PO SCH ×2 (09:15→18:45)
[2017-05-06] MEDS: ACYCLOVIR 200 MG CAPSULE PO SCH (09:16)
[2017-05-06] MEDS: FOLIC ACID 1 MG TABLET PO SCH (09:16)
[2017-05-06] MEDS: ATORVASTATIN CALCIUM 40 MG TABLET PO SCH (09:16)
[2017-05-06] MEDS: GUAIFENESIN 600 MG TABLET.SA PO SCH ×2 (09:17→22:20)
[2017-05-06 09:18] LABS: HEMATOCRIT 36.1 % (37.9-51.0); HEMOGLOBIN 12.3 g/dL (13.5-17.0); MEAN CORPUSCULAR HEMOGLOBIN 36.5 pg (27.0-33.4); MEAN CORPUSCULAR HGB CONC 34.2 g/dL (32.0-36.0); MEAN CORPUSCULAR VOLUME 107 fl (80-97); PLATELET COUNT 238 10^3/uL (150-450); RED BLOOD COUNT 3.38 10^6/uL (4.35-5.55); RED CELL DISTRIBUTION WIDTH 12.5 % (11.5-14.0); WHITE BLOOD COUNT 15.4 10^3/uL (4.0-10.5)
[2017-05-06] MEDS: DOCUSATE SODIUM 100 MG CAPSULE PO SCH ×2 (09:18→18:45)
[2017-05-06] MEDS: BEER PO SCH ×4 (10:00→22:00)
[2017-05-06 11:38] LABS: ALANINE AMINOTRANSFERASE 84 U/L (21-72); ALBUMIN 3.1 g/dL (3.5-5.0); ALKALINE PHOSPHATASE 61 U/L (38-126); ANION GAP 13 (5-19); ASPARTATE AMINO TRANSFERASE 81 U/L (17-59); BILIRUBIN,DIRECT 0.4 mg/dL (0.0-0.4); BILIRUBIN,TOTAL 0.5 mg/dL (0.2-1.3); BLOOD UREA NITROGEN 17 mg/dL (7-20); CARBON DIOXIDE 25 mmol/L (22-30); CHLORIDE 95 mmol/L (98-107); GLUCOSE 148 mg/dL (75-110); SODIUM 132.6 mmol/L (137-145); TOTAL PROTEIN 5.8 g/dL (6.3-8.2)
[2017-05-06 11:40] LABS: POTASSIUM 2.7 mmol/L (3.6-5.0)
[2017-05-06 11:44] LABS: VANCOMYCIN,TROUGH 9.2 ug/mL (5.0-20.0)
[2017-05-06] MEDS: VANCOMYCIN HCL 1,500 MG in DEXTROSE 5%-WATER 250 ML IV SCH (12:04)
--- NOTE | 2017-05-06 12:44 | EKG REPORT ---
SEVERITY:- NORMAL ECG - SINUS RHYTHM : Confirmed by: Ashley Bradshaw MD 06-May-2017 12:43:30
[2017-05-06 12:54] LABS: HEMATOCRIT 36.6 % (37.9-51.0); HEMOGLOBIN 12.7 g/dL (13.5-17.0); MEAN CORPUSCULAR HEMOGLOBIN 36.6 pg (27.0-33.4); MEAN CORPUSCULAR HGB CONC 34.6 g/dL (32.0-36.0); MEAN CORPUSCULAR VOLUME 106 fl (80-97); PLATELET COUNT 248 10^3/uL (150-450); RED BLOOD COUNT 3.46 10^6/uL (4.35-5.55); RED CELL DISTRIBUTION WIDTH 12.4 % (11.5-14.0); WHITE BLOOD COUNT 13.2 10^3/uL (4.0-10.5)
--- NOTE | 2017-05-06 12:55 | PDOC PROGRESS REPORT ---
Subjective Progress Note for:: 05/06/17 Subjective:: 66-year-old male past medical history of alcoholism. Came in with complaints of cough, fever, confusion. Patient had a x-ray that showed middle lobe pneumonia but cannot rule out mass. Patient was started on supplemental O2 antibiotics and alcohol withdrawal protocol. Patient was not started on nebulizers or steroids time of admission at I had added the earlier today due to his decrease oxygen saturation with he increase O2 demand. Patient continued to require increased amounts of oxygen with decreased O2 sats so I have requested he be transferred to IMCU, obtain an ABG, placed on BiPAP if needed, will get a CT of his chest to r/o PE. Patient having diarrhea, increase congestion shortness of breath, patient was getting IV fluids at a rate of 150 due to suspected dehydration however now. He is in overloaded. Patient has BiPAP as needed however will hold off until he is better diuresed. Reason For Visit: CAP Physical Exam Vital Signs: Temp Pulse Resp BP Pulse Ox 97.4 F 72 29 H 149/76 H 94 05/06/17 07:20 05/06/17 07:20 05/06/17 07:20 05/06/17 07:20 05/06/17 07:20 Intake & Output 05/05/17 05/06/17 05/07/17 06:59 06:59 06:59 Intake Total 3065 6610 Output Total 1675 3025 Balance 1390 3585 General appearance: PRESENT: mild distress, well-developed, well-nourished Head exam: PRESENT: atraumatic, normocephalic Eye exam: PRESENT: conjunctiva pink, EOMI, PERRLA. ABSENT: scleral icterus Ear exam: PRESENT: normal external ear exam Mouth exam: PRESENT: moist, tongue midline Neck exam: ABSENT: carotid bruit, JVD, lymphadenopathy, thyromegaly Respiratory exam: PRESENT: accessory muscle use, rales, rhonchi, tachypnea, wheezes. ABSENT: unlabored Cardiovascular exam: PRESENT: RRR. ABSENT: diastolic murmur, rubs, systolic murmur Pulses: PRESENT: normal dorsalis pedis pul Vascular exam: PRESENT: normal capillary refill GI/Abdominal exam: PRESENT: distended, normal bowel sounds, soft. ABSENT: guarding, mass, organolmegaly, rebound, tenderness Rectal exam: PRESENT: deferred Extremities exam: PRESENT: full ROM, +2 edema. ABSENT: calf tenderness, clubbing, pedal edema Musculoskeletal exam: PRESENT: ambulatory Neurological exam: PRESENT: alert, awake, oriented to person, oriented to place , CN II-XII grossly intact. ABSENT: motor sensory deficit Psychiatric exam: PRESENT: appropriate affect, flat affect. ABSENT: homicidal ideation, suicidal ideation Skin exam: PRESENT: dry, intact, warm. ABSENT: cyanosis, rash Results Laboratory Results: 05/04/17 06:53 05/03/17 15:00 Sputum Gram Stain - Final 05/03/17 15:00 Sputum Sputum Culture - Final NORMAL [place] Impressions: Chest X-Ray 05/04/17 00:00 IMPRESSION: Increased consolidation in the left upper lobe with development of new alveolar opacity -consolidation in the right upper lobe. Mild interstitial prominence. No significant effusion. Chest/Abdomen CTA 05/04/17 00:00 IMPRESSION: Dense consolidation is present in the lateral aspect of the left upper lobe. Patchy consolidation is present in the central and lateral aspects of the right upper lobe. Interstitial and ground-glass opacities are present throughout both upper lobes. Small bilateral pleural effusions are present. Diffuse mediastinal adenopathy, reactive appearing. Overall appearance suggests acute infectious etiology. No emboli visualized in the main pulmonary arteries or the segmental branches. Assessment & Plan - Diagnosis (1) Dyspnea Qualifiers: Dyspnea type: acute respiratory distress Qualified Code(s): R06.03 - Acute respiratory distress Is this a current diagnosis for this admission?: Yes Plan: Obtain an ABG, assess for need of BiPAP, will get a chest CT to rule out PE. Continue nebulizers, steroids, antibiotics. We will have nurse to call the ABGs in 2 hospitalists when resulted. Transfer patient to [facility]. Titrate O2 keep oxygen greater than 90% monitor closely for DTs, pressure patient on telemetry Patient appears to be fluid volume overload and wet. Will start IV fluids, diuresis with Lasix, and replace his potassium. We will need to do close monitoring labs. Continue oxygen supplement supplementing at this time. Aggressive diuresis today (2) Pneumonia Qualifiers: Pneumonia type: due to unspecified organism Laterality: left Lung location: upper lobe of lung Qualified Code(s): J18.1 - Lobar pneumonia, unspecified organism Is this a current diagnosis for this admission?: Yes Plan: Continue antibiotics, nebulizers, steroids. (3) Sepsis Qualifiers: Sepsis type: sepsis due to unspecified organism Qualified Code(s): A41.9 - Sepsis, unspecified organism Is this a current diagnosis for this admission?: Yes Plan: Patient to have IV antibiotics, steroids, nebulizers, O2 as needed to titrate to keep sats greater than 90% rule out pulmonary embolus, will obtain repeat blood cultures if patient spikes a temp, continue to monitor cultures (4) Diarrhea Qualifiers: Diarrhea type: presumed infectious Qualified Code(s): A09 - Infectious gastroenteritis and colitis, unspecified Is this a current diagnosis for this admission?: Yes Plan: send stool for C-diff (5) ETOH abuse Is this a current diagnosis for this admission?: Yes Plan: Continue supplementing with one can of beer daily. (6) Hypokalemia Is this a current diagnosis for this admission?: Yes Plan: Replace potassium both IV and oral recheck at 4 PM this afternoon and again in the morning. (7) Fluid volume excess Qualifiers: Hypervolemia type: transfusion-associated Qualified Code(s): E87.71 - Transfusion associated circulatory overload Is this a current diagnosis for this admission?: Yes Plan: Aggressive diuresis today, check BNP - Plan Summary Plan Summary: D/C IVF will give him some Lasix. Continues to have SOB. Has Effusions on chest CT. Plan to repeat chest CT
--- NOTE | 2017-05-06 12:55 | PDOC PROGRESS REPORT ---
Subjective Progress Note for:: 05/05/17 Subjective:: 66-year-old male past medical history of alcoholism. Came in with complaints of cough, fever, confusion. Patient had a x-ray that showed middle lobe pneumonia but cannot rule out mass. Patient was started on supplemental O2 antibiotics and alcohol withdrawal protocol. Patient was not started on nebulizers or steroids time of admission at had added the earlier today due to his decrease oxygen saturation with he increase O2 demand. Patient on BiPAP as needed, will get a CT of his chest negative for PE. Reason For Visit: CAP Physical Exam Vital Signs: Temp Pulse Resp BP Pulse Ox 97.4 F 72 29 H 149/76 H 94 05/06/17 07:20 05/06/17 07:20 05/06/17 07:20 05/06/17 07:20 05/06/17 07:20 Intake & Output 05/05/17 05/06/17 05/07/17 06:59 06:59 06:59 Intake Total 3065 6610 Output Total 1675 3025 Balance 1390 3585 General appearance: PRESENT: no acute distress, well-developed, well-nourished Head exam: PRESENT: atraumatic, normocephalic Eye exam: PRESENT: conjunctiva pink, EOMI, PERRLA. ABSENT: scleral icterus Ear exam: PRESENT: normal external ear exam Mouth exam: PRESENT: moist, tongue midline Neck exam: ABSENT: carotid bruit, JVD, lymphadenopathy, thyromegaly Respiratory exam: PRESENT: clear to auscultation britt, rhonchi, wheezes. ABSENT : rales Cardiovascular exam: PRESENT: RRR. ABSENT: diastolic murmur, rubs, systolic murmur Pulses: PRESENT: normal dorsalis pedis pul Vascular exam: PRESENT: normal capillary refill GI/Abdominal exam: PRESENT: normal bowel sounds, soft. ABSENT: distended, guarding, mass, organolmegaly, rebound, tenderness Rectal exam: PRESENT: deferred Extremities exam: PRESENT: full ROM, +1 edema. ABSENT: calf tenderness, clubbing, pedal edema Neurological exam: PRESENT: alert, awake, oriented to person, oriented to place , oriented to time, CN II-XII grossly intact. ABSENT: motor sensory deficit Psychiatric exam: PRESENT: appropriate affect, normal mood. ABSENT: homicidal ideation, suicidal ideation Skin exam: PRESENT: dry, intact, warm. ABSENT: cyanosis, rash Results Laboratory Results: 05/04/17 06:53 05/03/17 15:00 Sputum Gram Stain - Final 05/03/17 15:00 Sputum Sputum Culture - Final NORMAL [place] Impressions: Chest X-Ray 05/04/17 00:00 IMPRESSION: Increased consolidation in the left upper lobe with development of new alveolar opacity -consolidation in the right upper lobe. Mild interstitial prominence. No significant effusion. Chest/Abdomen CTA 05/04/17 00:00 IMPRESSION: Dense consolidation is present in the lateral aspect of the left upper lobe. Patchy consolidation is present in the central and lateral aspects of the right upper lobe. Interstitial and ground-glass opacities are present throughout both upper lobes. Small bilateral pleural effusions are present. Diffuse mediastinal adenopathy, reactive appearing. Overall appearance suggests acute infectious etiology. No emboli visualized in the main pulmonary arteries or the segmental branches. Assessment & Plan - Diagnosis (1) Dyspnea Qualifiers: Dyspnea type: acute respiratory distress Qualified Code(s): R06.03 - Acute respiratory distress Is this a current diagnosis for this admission?: Yes Plan: Obtain an ABG, assess for need of BiPAP, will get a chest CT to rule out PE. Continue nebulizers, steroids, antibiotics. We will have nurse to call the ABGs in 2 hospitalists when resulted. Transfer patient to [facility]. Titrate O2 keep oxygen greater than 90% monitor closely for DTs, pressure patient on telemetry Patient appears to be fluid volume overload and wet. Will start IV fluids, diuresis with Lasix, and replace his potassium. We will need to do close monitoring labs. Continue oxygen supplement supplementing at this time. Aggressive diuresis today (2) ETOH abuse Plan: Continue supplementing with one can of beer daily. (3) Pneumonia Qualifiers: Laterality: left Lung location: upper lobe of lung Qualified Code(s): J18.1 - Lobar pneumonia, unspecified organism Is this a current diagnosis for this admission?: Yes Plan: Continue antibiotics, nebulizers, steroids. (4) Sepsis Qualifiers: Sepsis type: sepsis due to unspecified organism Qualified Code(s): A41.9 - Sepsis, unspecified organism Is this a current diagnosis for this admission?: Yes Plan: Patient to have IV antibiotics, steroids, nebulizers, O2 as needed to titrate to keep sats greater than 90% rule out pulmonary embolus, will obtain repeat blood cultures if patient spikes a temp, continue to monitor cultures - Plan Summary Plan Summary: Continue to monitor for signs of DT.
[2017-05-06] MEDS ORDERED: POTASSIUM CHLORIDE 20 MEQ/15 ML UDCUP PO ONE (13:30)
[2017-05-06] MEDS: FUROSEMIDE INJ/PF 40 MG/4 ML SDV IV SCH (13:33)
[2017-05-06] MEDS: LEVOFLOXACIN 750 MG/D5W RTU 750 MG/150 ML RTUPB IV SCH (16:12)
[2017-05-06 16:30] LABS: BLOOD UREA NITROGEN 20 mg/dL (7-20); CALCIUM 7.9 mg/dL (8.4-10.2); GLUCOSE 168 mg/dL (75-110)
[2017-05-06 16:31] LABS: ANION GAP 12 (5-19); CARBON DIOXIDE 29 mmol/L (22-30); CHLORIDE 91 mmol/L (98-107); SODIUM 131.8 mmol/L (137-145)
[2017-05-06 16:37] LABS: POTASSIUM 2.7 mmol/L (3.6-5.0)
[2017-05-06] MEDS ORDERED: VANCOMYCIN HCL 1,250 MG in DEXTROSE 5%-WATER 250 ML IV SCH (18:00)
[2017-05-06] MEDS: POTASSI CL 20 MEQ/50 ML RIDER 20 MEQ/50 ML RTUPB IV SCH ×2 (18:44→19:57)
[2017-05-06] MEDS: RIFAMPIN 600 MG in NORMAL SALINE 500 ML IV SCH (20:02)
[2017-05-06] MEDS: MONTELUKAST SODIUM 10 MG TABLET PO SCH (22:20)
[2017-05-07] MEDS: FUROSEMIDE INJ/PF 40 MG/4 ML SDV IV SCH ×2 (01:49→14:22)
[2017-05-07] MEDS: METHYLPREDNISOLONE INJ 125 MG/2 ML SDV IV SCH (02:47)
[2017-05-07] MEDS: HEPARIN SOD (PORCINE) 5,000 UNIT/ML 1 ML SYRINGE SUBCUT SCH ×3 (06:38→21:48)
[2017-05-07 06:52] LABS: HEMATOCRIT 35.6 % (37.9-51.0); HEMOGLOBIN 12.2 g/dL (13.5-17.0); MEAN CORPUSCULAR HEMOGLOBIN 36.3 pg (27.0-33.4); MEAN CORPUSCULAR HGB CONC 34.4 g/dL (32.0-36.0); MEAN CORPUSCULAR VOLUME 106 fl (80-97); PLATELET COUNT 237 10^3/uL (150-450); RED BLOOD COUNT 3.37 10^6/uL (4.35-5.55); RED CELL DISTRIBUTION WIDTH 12.5 % (11.5-14.0); WHITE BLOOD COUNT 11.9 10^3/uL (4.0-10.5)
[2017-05-07 07:26] LABS: ANION GAP 12 (5-19); BLOOD UREA NITROGEN 25 mg/dL (7-20); CALCIUM 7.9 mg/dL (8.4-10.2); CARBON DIOXIDE 29 mmol/L (22-30); CHLORIDE 93 mmol/L (98-107); GLUCOSE 130 mg/dL (75-110); SODIUM 133.8 mmol/L (137-145)
[2017-05-07 07:42] LABS: POTASSIUM 2.6 mmol/L (3.6-5.0)
[2017-05-07] MEDS: IPRATROPIUM/ALBUTEROL 0.5-2.5 MG/3 ML AMPUL NEB SCH ×4 (08:23→20:09)
[2017-05-07] MEDS ORDERED: POTASSI CL 20 MEQ/50 ML RIDER 20 MEQ/50 ML RTUPB IV SCH (09:00)
[2017-05-07] MEDS: GUAIFENESIN 600 MG TABLET.SA PO SCH ×2 (09:15→21:50)
[2017-05-07] MEDS: BUSPIRONE HCL 10 MG TABLET PO SCH ×2 (09:15→18:12)
[2017-05-07] MEDS: ATORVASTATIN CALCIUM 40 MG TABLET PO SCH (09:17)
[2017-05-07] MEDS: FOLIC ACID 1 MG TABLET PO SCH (09:18)
[2017-05-07] MEDS: VERAPAMIL HCL 240 MG TABLET.SA PO SCH (09:18)
[2017-05-07] MEDS: THIAMINE HCL 100 MG TABLET PO SCH (09:18)
[2017-05-07] MEDS: FLUTICASONE NASAL SPRAY 50 MCG/SPRY 120 SPRAY/16 GM NASL SCH ×2 (09:25→21:50)
[2017-05-07] MEDS: DOCUSATE SODIUM 100 MG CAPSULE PO SCH ×2 (09:27→18:14)
[2017-05-07] MEDS: BEER PO SCH ×4 (09:27→23:43)
[2017-05-07] MEDS ORDERED: POTASSIUM CHLORIDE 10 MEQ TABLET.SA PO SCH (10:00)
[2017-05-07] MEDS ORDERED: LACTOBACILLUS ACIDOPHILUS 250 MG TAB PO ONE (11:30)
[2017-05-07 12:10] LABS: HEMATOCRIT 35.6 % (37.9-51.0); HEMOGLOBIN 12.4 g/dL (13.5-17.0); MEAN CORPUSCULAR HEMOGLOBIN 36.6 pg (27.0-33.4); MEAN CORPUSCULAR HGB CONC 34.8 g/dL (32.0-36.0); MEAN CORPUSCULAR VOLUME 105 fl (80-97); PLATELET COUNT 266 10^3/uL (150-450); RED BLOOD COUNT 3.39 10^6/uL (4.35-5.55); RED CELL DISTRIBUTION WIDTH 12.6 % (11.5-14.0); WHITE BLOOD COUNT 11.3 10^3/uL (4.0-10.5)
[2017-05-07] MEDS ORDERED: METHYLPREDNISOLONE INJ 125 MG/2 ML SDV IV SCH (14:00)
[2017-05-07] MEDS ORDERED: POTASSIUM CHLORIDE 10 MEQ TABLET.SA PO ONE (14:00)
[2017-05-07] MEDS: LORAZEPAM 1 MG TABLET PO PRN ×3 (14:16→22:10)
[2017-05-07] MEDS: LACTOBACILLUS ACIDOPHILUS 250 MG TAB PO SCH ×3 (14:17→21:51)
[2017-05-07] MEDS: METHYLPREDNISOLONE INJ 40 MG/1 ML SDV IV SCH ×2 (14:21→21:52)
[2017-05-07] MEDS: LEVOFLOXACIN 750 MG/D5W RTU 750 MG/150 ML RTUPB IV SCH (14:23)
--- NOTE | 2017-05-07 14:32 | PDOC PROGRESS REPORT ---
Subjective Progress Note for:: 05/07/17 Subjective:: 66-year-old male past medical history of alcoholism. Came in with complaints of cough, fever, confusion. Patient had a x-ray that showed middle lobe pneumonia but cannot rule out mass. Patient was started on supplemental O2 antibiotics and alcohol withdrawal protocol. Patient was not started on nebulizers or steroids time of admission at I had added the earlier today due to his decrease oxygen saturation with he increase O2 demand. Patient continued to require increased amounts of oxygen with decreased O2 sats so I have requested he be transferred to IMCU, obtain an ABG, placed on BiPAP if needed, will get a CT of his chest to r/o PE. 05/06/17 Patient having diarrhea, increase congestion shortness of breath, patient was getting IV fluids at a rate of 150 due to suspected dehydration however now he is in overloaded. Patient has BiPAP as needed however will hold off until he is better diuresed. Today he is much better. Looks good and is breathing better. States he is grateful we found out what was wrong with him. Reason For Visit: CAP Physical Exam Vital Signs: Temp Pulse Resp BP Pulse Ox 97.4 F 88 16 151/77 H 95 05/07/17 08:03 05/07/17 12:26 05/07/17 12:26 05/07/17 08:03 05/07/17 12:26 Intake & Output 05/06/17 05/07/17 05/08/17 06:59 06:59 06:59 Intake Total 6610 4313 Output Total 3025 8200 Balance 3585 -3887 Weight 0 g General appearance: PRESENT: no acute distress, well-developed, well-nourished Head exam: PRESENT: atraumatic, normocephalic Eye exam: PRESENT: conjunctiva pink, EOMI, PERRLA. ABSENT: scleral icterus Ear exam: PRESENT: normal external ear exam Mouth exam: PRESENT: moist, tongue midline Neck exam: ABSENT: carotid bruit, JVD, lymphadenopathy, thyromegaly Respiratory exam: PRESENT: clear to auscultation britt, rhonchi, unlabored. ABSENT: rales, wheezes Cardiovascular exam: PRESENT: RRR. ABSENT: diastolic murmur, rubs, systolic murmur Pulses: PRESENT: normal dorsalis pedis pul Vascular exam: PRESENT: normal capillary refill GI/Abdominal exam: PRESENT: normal bowel sounds, soft. ABSENT: distended, guarding, mass, organolmegaly, rebound, tenderness Rectal exam: PRESENT: deferred Extremities exam: PRESENT: full ROM. ABSENT: calf tenderness, clubbing, pedal edema Neurological exam: PRESENT: alert, awake, oriented to person, oriented to place , oriented to time, oriented to situation, CN II-XII grossly intact. ABSENT: motor sensory deficit Psychiatric exam: PRESENT: appropriate affect, normal mood. ABSENT: homicidal ideation, suicidal ideation Skin exam: PRESENT: dry, intact, warm. ABSENT: cyanosis, rash Results Laboratory Results: 05/07/17 11:49 05/06/17 05/07/17 05/07/17 16:00 05:56 05:56 WBC 11.9 H RBC 3.37 L Hgb 12.2 L Hct 35.6 L MCV 106 H MCH 36.3 H MCHC 34.4 RDW 12.5 Plt Count 237 Sodium 131.8 L 133.8 L Potassium 2.7 L* 2.6 L* Chloride 91 L 93 L Carbon Dioxide 29 29 Anion Gap 12 12 BUN 20 25 H Creatinine 0.99 0.85 Est GFR ( Amer) > 60 > 60 Est GFR (Non-Af Amer) > 60 > 60 Glucose 168 H 130 H Calcium 7.9 L 7.9 L 05/07/17 11:49 WBC 11.3 H RBC 3.39 L Hgb 12.4 L Hct 35.6 L MCV 105 H MCH 36.6 H MCHC 34.8 RDW 12.6 Plt Count 266 Sodium Potassium Chloride Carbon Dioxide Anion Gap BUN Creatinine Est GFR ( Amer) Est GFR (Non-Af Amer) Glucose Calcium 05/03/17 12:25 Clean Catch Midstream Legionella Urinary Antigen - Final 05/06/17 05/07/17 08:48 05:56 NT-Pro-B Natriuret Pep 3350 H 2760 H Impressions: Chest X-Ray 05/04/17 00:00 IMPRESSION: Increased consolidation in the left upper lobe with development of new alveolar opacity -consolidation in the right upper lobe. Mild interstitial prominence. No significant effusion. Chest/Abdomen CTA 05/04/17 00:00 IMPRESSION: Dense consolidation is present in the lateral aspect of the left upper lobe. Patchy consolidation is present in the central and lateral aspects of the right upper lobe. Interstitial and ground-glass opacities are present throughout both upper lobes. Small bilateral pleural effusions are present. Diffuse mediastinal adenopathy, reactive appearing. Overall appearance suggests acute infectious etiology. No emboli visualized in the main pulmonary arteries or the segmental branches. Assessment & Plan - Diagnosis (1) Hypokalemia Is this a current diagnosis for this admission?: Yes Plan: Replace potassium both IV and oral recheck at 2PM this afternoon and again in the morning. (2) Dyspnea Qualifiers: Dyspnea type: acute respiratory distress Qualified Code(s): R06.03 - Acute respiratory distress Is this a current diagnosis for this admission?: Yes Plan: Obtain an ABG, assess for need of BiPAP, will get a chest CT to rule out PE. Continue nebulizers, steroids, antibiotics. Patient appears to be fluid volume overload and wet on 05/06/17 Will stop IV fluids, diuresis with Lasix, and replace his potassium. We will need to do close monitoring labs. Continue oxygen supplement supplementing at this time. Aggressive diuresis with good output. Will continue to give Lasix today and tomorrow but hold off after that. Today he is much better after having 8200 cc out yesterday. Plan to decrease O2 today if tolerated. (3) Pneumonia Qualifiers: Pneumonia type: due to other aerobic Gram-negative bacteria Laterality: left Lung location: upper lobe of lung Qualified Code(s): J15.6 - Pneumonia due to other Gram-negative bacteria Is this a current diagnosis for this admission?: Yes Plan: Continue IV Levaquin and Rifampin antibiotics, nebulizers, steroids due to Legionella bacteria. Once better will consider changing to oral. (4) Sepsis Qualifiers: Sepsis type: sepsis due to unspecified organism Qualified Code(s): A41.9 - Sepsis, unspecified organism Is this a current diagnosis for this admission?: Yes Plan: Patient to have IV antibiotics, steroids, nebulizers, O2 as needed to titrate to keep sats greater than 90% rule out pulmonary embolus, will obtain repeat blood cultures if patient spikes a temp, continue to monitor cultures (5) Diarrhea Qualifiers: Diarrhea type: presumed infectious Qualified Code(s): A09 - Infectious gastroenteritis and colitis, unspecified Is this a current diagnosis for this admission?: Yes Plan: send stool for C-diff which was negative. Will start patient on lactobacillus 2 pills 4 times a day. Consider decreasing which patient's diarrhea has improved. (6) ETOH abuse Is this a current diagnosis for this admission?: Yes Plan: Continue supplementing with one can of beer daily. (7) Fluid volume excess Qualifiers: Hypervolemia type: transfusion-associated Qualified Code(s): E87.71 - Transfusion associated circulatory overload Is this a current diagnosis for this admission?: Yes - Plan Summary Plan Summary: Continue course of treatment. Plan to consider discharge home once patient stable next 2-3 days.
[2017-05-07] MEDS: RIFAMPIN 600 MG in NORMAL SALINE 500 ML IV SCH (18:09)
[2017-05-07] MEDS: MONTELUKAST SODIUM 10 MG TABLET PO SCH (21:51)
[2017-05-08 00:56] LABS: ANION GAP 8 (5-19); BLOOD UREA NITROGEN 26 mg/dL (7-20); CALCIUM 7.7 mg/dL (8.4-10.2); CARBON DIOXIDE 30 mmol/L (22-30); CHLORIDE 93 mmol/L (98-107); GLUCOSE 115 mg/dL (75-110); MAGNESIUM 1.8 mg/dL (1.6-2.3); SODIUM 130.8 mmol/L (137-145)
[2017-05-08 01:03] LABS: POTASSIUM 2.5 mmol/L (3.6-5.0)
[2017-05-08] MEDS: POTASSI CL 20 MEQ/50 ML RIDER 20 MEQ/50 ML RTUPB IV SCH ×3 (01:52→06:27)
[2017-05-08] MEDS: MAGNESIUM SULFATE/D5W 1 GM/100 ML RTUPB IV SCH ×2 (01:56→03:06)
[2017-05-08] MEDS ORDERED: POTASSIUM CHLORIDE 10 MEQ TABLET.SA PO ONE (02:00)
[2017-05-08] MEDS: FUROSEMIDE INJ/PF 40 MG/4 ML SDV IV SCH (02:35)
[2017-05-08] MEDS: METHYLPREDNISOLONE INJ 40 MG/1 ML SDV IV SCH ×3 (06:12→22:14)
[2017-05-08] MEDS: HEPARIN SOD (PORCINE) 5,000 UNIT/ML 1 ML SYRINGE SUBCUT SCH ×3 (06:12→22:15)
[2017-05-08 06:33] LABS: ANION GAP 12 (5-19); BLOOD UREA NITROGEN 22 mg/dL (7-20); CALCIUM 8.1 mg/dL (8.4-10.2); CARBON DIOXIDE 31 mmol/L (22-30); CHLORIDE 92 mmol/L (98-107); GLUCOSE 130 mg/dL (75-110); POTASSIUM 3.4 mmol/L (3.6-5.0); SODIUM 135.3 mmol/L (137-145)
[2017-05-08] MEDS: IPRATROPIUM/ALBUTEROL 0.5-2.5 MG/3 ML AMPUL NEB SCH ×4 (08:26→21:12)
[2017-05-08] MEDS: LACTOBACILLUS ACIDOPHILUS 250 MG TAB PO SCH ×4 (09:39→22:14)
[2017-05-08] MEDS: FOLIC ACID 1 MG TABLET PO SCH (09:39)
[2017-05-08] MEDS: BUSPIRONE HCL 10 MG TABLET PO SCH ×2 (09:40→18:36)
[2017-05-08] MEDS: VERAPAMIL HCL 240 MG TABLET.SA PO SCH (09:40)
[2017-05-08] MEDS: GUAIFENESIN 600 MG TABLET.SA PO SCH ×2 (09:40→22:14)
[2017-05-08] MEDS: LORAZEPAM 1 MG TABLET PO PRN ×3 (09:40→22:16)
[2017-05-08] MEDS: THIAMINE HCL 100 MG TABLET PO SCH (09:40)
[2017-05-08] MEDS: ATORVASTATIN CALCIUM 40 MG TABLET PO SCH (09:40)
[2017-05-08] MEDS: FLUTICASONE NASAL SPRAY 50 MCG/SPRY 120 SPRAY/16 GM NASL SCH ×2 (09:41→22:14)
[2017-05-08] MEDS: BEER PO SCH ×4 (09:41→22:18)
[2017-05-08] MEDS: DOCUSATE SODIUM 100 MG CAPSULE PO SCH ×2 (09:41→18:36)
[2017-05-08] MEDS: POTASSIUM CHLORIDE 10 MEQ TABLET.SA PO SCH (09:41)
--- NOTE | 2017-05-08 14:09 | PDOC PROGRESS REPORT ---
Subjective Progress Note for:: 05/08/17 Subjective:: The patient was seen on morning rounds as a follow-up of his sepsis secondary to Legionella pneumonia he is found sitting upright in his bed on supplemental oxygen via nasal cannula at 5 L/min. He is just finished his breakfast and reports a good appetite without nausea or vomiting. He states that his breathing has improved greatly and that he no longer is feeling short of breath while at rest. He does continue to have a productive cough and become quite dyspneic with even light activity. He is happy to report that he did not require BiPAP overnight. Overall, he is feeling much improved and has no questions or concerns today. Reason For Visit: CAP Physical Exam Vital Signs: Temp Pulse Resp BP Pulse Ox 97.4 F 68 18 146/73 H 95 05/08/17 12:25 05/08/17 12:25 05/08/17 12:25 05/08/17 12:25 05/08/17 12:25 Intake & Output 05/07/17 05/08/17 05/09/17 06:59 06:59 06:59 Intake Total 4313 3299 Output Total 8200 6025 Balance -5403 -2278 Weight 0 g 74.7 kg General appearance: PRESENT: no acute distress, well-developed, well-nourished Head exam: PRESENT: atraumatic, normocephalic Eye exam: PRESENT: conjunctiva pink, EOMI, PERRLA. ABSENT: scleral icterus Ear exam: PRESENT: normal external ear exam Mouth exam: PRESENT: moist, tongue midline Neck exam: ABSENT: carotid bruit, JVD, lymphadenopathy, thyromegaly Respiratory exam: PRESENT: rhonchi, symmetrical, unlabored, other - Supplemental oxygen via nasal cannula at 5 L/min. ABSENT: rales, wheezes Cardiovascular exam: PRESENT: RRR, +S1, +S2. ABSENT: diastolic murmur, rubs, systolic murmur Pulses: PRESENT: normal dorsalis pedis pul Vascular exam: PRESENT: normal capillary refill GI/Abdominal exam: PRESENT: normal bowel sounds, soft. ABSENT: distended, guarding, mass, organolmegaly, rebound, tenderness Rectal exam: PRESENT: deferred Extremities exam: PRESENT: full ROM. ABSENT: calf tenderness, clubbing, pedal edema Neurological exam: PRESENT: alert, awake, oriented to person, oriented to place , oriented to time, oriented to situation, CN II-XII grossly intact. ABSENT: motor sensory deficit Psychiatric exam: PRESENT: appropriate affect, normal mood. ABSENT: homicidal ideation, suicidal ideation Skin exam: PRESENT: dry, intact, warm. ABSENT: cyanosis, rash Results Laboratory Results: 05/07/17 11:49 05/08/17 05:36 05/07/17 05/07/17 05/08/17 13:50 20:00 00:28 Sodium 130.8 L Potassium 2.5 L* 2.7 L* 2.5 L* Chloride 93 L Carbon Dioxide 30 Anion Gap 8 BUN 26 H Creatinine 0.83 Est GFR ( Amer) > 60 Est GFR (Non-Af Amer) > 60 Glucose 115 H Calcium 7.7 L Magnesium 1.8 05/08/17 05:36 Sodium 135.3 L Potassium 3.4 L Chloride 92 L Carbon Dioxide 31 H Anion Gap 12 BUN 22 H Creatinine 0.79 Est GFR ( Amer) > 60 Est GFR (Non-Af Amer) > 60 Glucose 130 H Calcium 8.1 L Magnesium 05/06/17 05/07/17 05/08/17 08:48 05:56 05:36 NT-Pro-B Natriuret Pep 3350 H 2760 H 1410 H Impressions: Chest X-Ray 05/04/17 00:00 IMPRESSION: Increased consolidation in the left upper lobe with development of new alveolar opacity -consolidation in the right upper lobe. Mild interstitial prominence. No significant effusion. Chest/Abdomen CTA 05/04/17 00:00 IMPRESSION: Dense consolidation is present in the lateral aspect of the left upper lobe. Patchy consolidation is present in the central and lateral aspects of the right upper lobe. Interstitial and ground-glass opacities are present throughout both upper lobes. Small bilateral pleural effusions are present. Diffuse mediastinal adenopathy, reactive appearing. Overall appearance suggests acute infectious etiology. No emboli visualized in the main pulmonary arteries or the segmental branches. Assessment & Plan - Diagnosis (1) Pneumonia Qualifiers: Pneumonia type: due to other aerobic Gram-negative bacteria Laterality: bilateral Lung location: upper lobe of lung Qualified Code(s): J15.6 - Pneumonia due to other Gram-negative bacteria Is this a current diagnosis for this admission?: Yes Plan: The patient was admitted for fever, denies malaise, and confusion. He was noted to have a WBC count of 13.3 and a multifocal pneumonia by chest x-ray. Final blood culture: No growth. Urine culture: No growth. Sputum Gram stain: Normal mary. Legionella urinary antigen: positive Was initially placed on rifampin and Levaquin. He has demonstrated significant improvements and so his rifampin will be discontinued today. He is on IV Levaquin, day 3 of 10. The supportive care with nebulizer treatments, Mucinex, and supplemental oxygen as needed. He has BiPAP available nightly and as needed. (2) Dyspnea Qualifiers: Dyspnea type: acute respiratory distress Qualified Code(s): R06.03 - Acute respiratory distress Is this a current diagnosis for this admission?: Yes Plan: Improving. Secondary to pneumonia. The patient now is maintaining oxygen saturations on supplemental oxygen via nasal cannula. His dyspnea at rest, however quickly becomes dyspneic with minimal activity. We will continue to treat his pneumonia with Levaquin and provide supportive care with scheduled and as needed nebulizer treatments, Mucinex, and steroids. (3) Fluid volume excess Qualifiers: Hypervolemia type: transfusion-associated Qualified Code(s): E87.71 - Transfusion associated circulatory overload Is this a current diagnosis for this admission?: Yes Plan: Secondary to IV fluid resuscitation under sepsis protocols. Patient's IV fluids were held and he was diuresed with IV Lasix. ProBNP has since trended down from 3350 to 1410 with subsequent improvements in respiratory status and comfort. Will obtain daily weights. BiPAP is available nightly and as needed. Will monitor closely for evidence of fluid volume overload and provide as needed diuresis. (4) Hypokalemia Is this a current diagnosis for this admission?: Yes Plan: Likely secondary to diuresis. He has received IV potassium supplementation. Will monitor serial BMPs and continue to replace as needed. The scheduled IV furosemide has been discontinued. (5) Hyponatremia Plan: Improving; she did receive IV fluid resuscitation as part of the sepsis protocol. He is now tolerating a p.o. diet. We will continue to monitor. (6) Sepsis Qualifiers: Sepsis type: Streptococcus, other Qualified Code(s): A40.8 - Other streptococcal sepsis Is this a current diagnosis for this admission?: Yes Plan: Improved. Secondary to Legionella pneumonia. WBCs with gradual downward trend, he has remained afebrile greater than 24 hours , tachycardia has improved, blood pressures are actually slightly elevated, and normal respiratory rate. We will continue antibiotics and supportive care as outlined in the plan above. (7) Diarrhea Qualifiers: Diarrhea type: unspecified type Qualified Code(s): R19.7 - Diarrhea, unspecified Is this a current diagnosis for this admission?: Yes Plan: Improved. The patient developed after being admitted and placed on rifampin and Levaquin. A C. difficile was obtained and is negative. He was started on lactobacillus 4 times daily with improvement in stools and frequency. (8) ETOH abuse Is this a current diagnosis for this admission?: Yes Plan: The patient is currently ordered one can of beer daily. No evidence of alcohol withdrawal symptoms. - Time Time Spent with patient: 25-34 minutes Medications reviewed and adjusted accordingly: Yes - Inpatient Certification Based on my medical assessment, after consideration of the patient's comorbidities, presenting symptoms, or acuity I expect that the services needed warrant INPATIENT care.: Yes I certify that my determination is in accordance with my understanding of Medicare's requirements for reasonable and necessary INPATIENT services [42 CFR 412.3e].: Yes Medical Necessity: Need Close Monitoring Due to Risk of Patient Decompensation, Need for IV Antibiotics
[2017-05-08] MEDS ORDERED: NICOTINE 14 MG/24 HR PATCH.TD24 TD PRN (14:30)
[2017-05-08] MEDS: LEVOFLOXACIN 750 MG/D5W RTU 750 MG/150 ML RTUPB IV SCH (15:19)
[2017-05-08] MEDS: MONTELUKAST SODIUM 10 MG TABLET PO SCH (22:15)
[2017-05-09] MEDS: HEPARIN SOD (PORCINE) 5,000 UNIT/ML 1 ML SYRINGE SUBCUT SCH ×2 (05:18→13:34)
[2017-05-09] MEDS: METHYLPREDNISOLONE INJ 40 MG/1 ML SDV IV SCH (05:18)
[2017-05-09] MEDS: LORAZEPAM 1 MG TABLET PO PRN (05:21)
[2017-05-09 06:44] LABS: HEMATOCRIT 37.4 % (37.9-51.0); HEMOGLOBIN 12.9 g/dL (13.5-17.0); MEAN CORPUSCULAR HEMOGLOBIN 36.4 pg (27.0-33.4); MEAN CORPUSCULAR HGB CONC 34.5 g/dL (32.0-36.0); MEAN CORPUSCULAR VOLUME 106 fl (80-97); PLATELET COUNT 283 10^3/uL (150-450); RED BLOOD COUNT 3.54 10^6/uL (4.35-5.55); RED CELL DISTRIBUTION WIDTH 12.7 % (11.5-14.0); WHITE BLOOD COUNT 12.2 10^3/uL (4.0-10.5)
[2017-05-09 08:22] LABS: ANION GAP 12 (5-19); BLOOD UREA NITROGEN 21 mg/dL (7-20); CALCIUM 9.1 mg/dL (8.4-10.2); CARBON DIOXIDE 28 mmol/L (22-30); CHLORIDE 96 mmol/L (98-107); GLUCOSE 96 mg/dL (75-110); POTASSIUM 4.1 mmol/L (3.6-5.0); SODIUM 135.7 mmol/L (137-145)
[2017-05-09] MEDS: IPRATROPIUM/ALBUTEROL 0.5-2.5 MG/3 ML AMPUL NEB SCH ×2 (08:40→12:32)
[2017-05-09] MEDS ORDERED: LISINOPRIL 10 MG TABLET PO SCH ×2 (10:00)
[2017-05-09] MEDS ORDERED: HYDROCHLOROTHIAZIDE 25 MG TABLET PO SCH (10:00)
[2017-05-09] MEDS ORDERED: (PENDING PHARMACY ID) (Lisinopril/Hydrochlorothiazide [Lisinopril-Hctz 20-25 Mg Tab] 1 TAB PO SCH (10:00)
[2017-05-09] MEDS: ATORVASTATIN CALCIUM 40 MG TABLET PO SCH (11:29)
[2017-05-09] MEDS: LACTOBACILLUS ACIDOPHILUS 250 MG TAB PO SCH ×2 (11:29→13:32)
[2017-05-09] MEDS: GUAIFENESIN 600 MG TABLET.SA PO SCH (11:30)
[2017-05-09] MEDS: THIAMINE HCL 100 MG TABLET PO SCH (11:31)
[2017-05-09] MEDS: FOLIC ACID 1 MG TABLET PO SCH (11:31)
[2017-05-09] MEDS: POTASSIUM CHLORIDE 10 MEQ TABLET.SA PO SCH (11:31)
[2017-05-09] MEDS: VERAPAMIL HCL 240 MG TABLET.SA PO SCH (11:32)
[2017-05-09] MEDS: BUSPIRONE HCL 10 MG TABLET PO SCH (11:32)
[2017-05-09] MEDS: DOCUSATE SODIUM 100 MG CAPSULE PO SCH (11:33)
[2017-05-09] MEDS: FLUTICASONE NASAL SPRAY 50 MCG/SPRY 120 SPRAY/16 GM NASL SCH (11:33)
[2017-05-09] MEDS: BEER PO SCH ×2 (11:33→13:34)
[2017-05-09 14:33] VITALS: BP 139/87
[2017-05-09] MEDS ORDERED: LEVOFLOXACIN 750 MG TABLET PO SCH (15:00)
--- NOTE | 2017-05-09 17:45 | PDOC DISCHARGE SUMMARY ---
General - Admit/Disc Date/PCP Admission Date/Primary Care Provider: 05/03/17 12:05 ANAND CRUZ MD Discharge Date: 05/09/17 - Discharge Diagnosis (1) Pneumonia Is this a current diagnosis for this admission?: Yes (2) Dyspnea Is this a current diagnosis for this admission?: Yes (3) Fluid volume excess Is this a current diagnosis for this admission?: Yes (4) Hypokalemia Is this a current diagnosis for this admission?: Yes (6) Sepsis Is this a current diagnosis for this admission?: Yes (7) Diarrhea Is this a current diagnosis for this admission?: Yes (8) ETOH abuse Is this a current diagnosis for this admission?: Yes - Additional Information Resuscitation Status: Full Code Discharge Diet: As Tolerated Discharge Activity: Activity As Tolerated, Balance Activity w/Rest, Slowly Increase Activity Prescriptions: Folic Acid [Folvite 1 mg Tablet] 1 mg PO DAILY #90 tablet Guaifenesin [Mucinex Sr 600 mg Tablet.sa] 1,200 mg PO Q12 #30 tablet.sa Levofloxacin [Levaquin 750 mg Tablet] 750 mg PO DAILY@1500 #7 tablet Montelukast Sodium [Singulair 10 mg Tablet] 10 mg PO QHS #30 tablet Nicotine [Nicoderm 14 mg/24 Hr Transdermal Patch] 1 each TD DAILYP PRN #14 patch.td24 PRN Reason: Potassium Chloride [Klor-Con 10 Meq Tablet.sa] 10 meq PO DAILY #30 tablet.sa Prednisone 20 mg PO ASDIR PRN #20 tablet PRN Reason: Thiamine HCl [Thiamine 100 mg Tablet] 100 mg PO DAILY #90 tablet Home Medications: Adalimumab [Humira] 40 mg INJ [id number] 05/03/17 Atorvastatin Calcium [Lipitor 40 mg Tablet] 40 mg PO DAILY 05/03/17 Buspirone HCl [Buspar 10 mg Tablet] 10 mg PO BID 05/03/17 Escitalopram Oxalate [Lexapro] 20 mg PO DAILY 05/03/17 Lisinopril/Hydrochlorothiazide [Lisinopril-Hctz 20-25 mg Tab] 1 tab PO DAILY Verapamil HCl [Verapamil Sr] 240 mg PO DAILY 05/03/17 Acetaminophen [Tylenol 325 mg Tablet] 650 mg PO Q4HP PRN tablet 05/09/17 Folic Acid [Folvite 1 mg Tablet] 1 mg PO DAILY #90 tablet 05/09/17 Guaifenesin [Mucinex Sr 600 mg Tablet.sa] 1,200 mg PO Q12 #30 tablet.sa Levofloxacin [Levaquin 750 mg Tablet] 750 mg PO DAILY@1500 #7 tablet 05/09/17 Montelukast Sodium [Singulair 10 mg Tablet] 10 mg PO QHS #30 tablet 05/09/17 Nicotine [Nicoderm 14 mg/24 Hr Transdermal Patch] 1 each TD DAILYP PRN #14 patch.td24 05/09/17 Potassium Chloride [Klor-Con 10 Meq Tablet.sa] 10 meq PO DAILY #30 tablet.sa 07/22 Prednisone 20 mg PO ASDIR PRN #20 tablet 05/09/17 Thiamine HCl [Thiamine 100 mg Tablet] 100 mg PO DAILY #90 tablet 05/09/17 History of Present Illness History of Present Illness: Per H&P by Hannah Fischer [employer]: CIARA EATON is a 66 year old male with a past medical history of hypertension, tobacco dependency and rheumatoid arthritis. The patient presented to the emergency department with a chief complaint of shortness of breath. Apparently the patient has had complaints of cough, fevers , general malaise and some confusion, which has been going on for the past couple of days. The patient stated he had not been feeling well and stated that he had had a fever and felt confused with this. The patient denied any actual vomiting but admitted to nausea. The patient had a very strong cough was producing significant amounts of yellow sputum. The patient denies any difficulty swallowing, no dizziness, chest pain or shortness of breath. The patient stated he was so concerned with how poorly he felt that he had actually not spoke today. Upon presentation the patient was found to have a low-grade temperature of 100.3, tachycardia and tachypnea. The patient was given supplemental O2, Tylenol and covered with Rocephin was referred to the hospitalist for admission and management. Upon my examination of the patient, the patient denies any previous pneumonia. The patient denies any sick contacts. The patient stated that his symptoms have been ever increasing over the past 4 days. The patient states that he had not much sleep because he felt so poorly and, therefore, feels delirious. One element of concern is the patient is alcohol dependent and drinks up to 8-10 ounces of vodka a day, however, do suspect there is more than this. I have asked the patient if he would like to stop drinking, and he declines this as well as declines stopping smoking, therefore, will supplement both alcohol and nicotine patch for now. Hospital Course Hospital Course: The patient was admitted to our IMCU unit on continuous cardiac telemetry. He was started on Rocephin and Zithromax empirically. He received supportive therapy with Mucinex, flutter valve, incentive spirometry, Singulair and Flonase. He did require BiPAP for a period of time but was then transitioned to supplemental oxygen via nasal cannula remainder of his admission. A chest CTA was obtained and ruled out pulmonary embolus. His blood cultures did not have any growth, however, his Legionella urinary antigen was positive. His antibiotic therapy with adjusted for coverage of Legionella's. Shortly thereafter, the patient began quickly improved with reduction in his sputum, and resolution of his fever and dyspnea. At time of discharge, the patient was ambulatory on room air without difficulty. He did briefly require IV furosemide for diuresis following IV fluid resuscitation as part of his sepsis protocol. At time of discharge, the patient is euvolemic. His alcohol dependency was managed with p.o. beer 4 times daily as there was some initial concern that benzodiazepines would worsen his respiratory status. At this time, the patient is stable for discharge to home. He was evaluated by her physical therapy/occupational therapists with no recommendations for therapy services. He is maintaining his oxygenation and appropriate heart rate while ambulating short distances on room air. He is provided prescriptions for Levaquin, prednisone taper, Singulair, Mucinex, nicotine patch, potassium, folic acid and thiamine. He is recommended to follow-up with his primary care provider within 1 week. Physical Exam Vital Signs: Temp Pulse Resp BP Pulse Ox 97.8 F 72 14 160/80 H 98 05/09/17 13:58 05/09/17 13:58 05/09/17 13:58 05/09/17 13:58 05/09/17 13:58 Intake & Output 05/08/17 05/09/17 05/10/17 06:59 06:59 06:59 Intake Total 0121 6456 1006 Output Total 6033 9236 400 Balance -2726 -264 606 Weight 74.7 kg 71.6 kg General appearance: PRESENT: no acute distress, well-developed, well-nourished Head exam: PRESENT: atraumatic, normocephalic Eye exam: PRESENT: conjunctiva pink, EOMI, PERRLA. ABSENT: scleral icterus Ear exam: PRESENT: normal external ear exam Mouth exam: PRESENT: moist, tongue midline Neck exam: ABSENT: carotid bruit, JVD, lymphadenopathy, thyromegaly Respiratory exam: PRESENT: clear to auscultation britt, prolonged expiratory phas , rhonchi - occasional, symmetrical, unlabored. ABSENT: rales, wheezes Cardiovascular exam: PRESENT: RRR. ABSENT: diastolic murmur, rubs, systolic murmur Pulses: PRESENT: normal dorsalis pedis pul Vascular exam: PRESENT: normal capillary refill GI/Abdominal exam: PRESENT: normal bowel sounds, soft. ABSENT: distended, guarding, mass, organolmegaly, rebound, tenderness Rectal exam: PRESENT: deferred Extremities exam: PRESENT: full ROM. ABSENT: calf tenderness, clubbing, pedal edema Neurological exam: PRESENT: alert, awake, oriented to person, oriented to place , oriented to time, oriented to situation, CN II-XII grossly intact. ABSENT: motor sensory deficit Psychiatric exam: PRESENT: appropriate affect, normal mood. ABSENT: homicidal ideation, suicidal ideation Skin exam: PRESENT: dry, intact, warm. ABSENT: cyanosis, rash Results Laboratory Results: 05/09/17 06:07 05/09/17 07:53 05/09/17 05/09/17 05/09/17 06:07 06:07 07:53 WBC 12.2 H RBC 3.54 L Hgb 12.9 L Hct 37.4 L MCV 106 H MCH 36.4 H MCHC 34.5 RDW 12.7 Plt Count 283 Sodium Cancelled 135.7 L Potassium Cancelled 4.1 Chloride Cancelled 96 L Carbon Dioxide Cancelled 28 Anion Gap Cancelled 12 BUN Cancelled 21 H Creatinine Cancelled 0.74 Est GFR ( Amer) Cancelled > 60 Est GFR (Non-Af Amer) Cancelled > 60 Glucose Cancelled 96 Calcium Cancelled 9.1 05/06/17 05/07/17 05/08/17 08:48 05:56 05:36 NT-Pro-B Natriuret Pep 3350 H 2760 H 1410 H Impressions: Chest X-Ray 05/04/17 00:00 IMPRESSION: Increased consolidation in the left upper lobe with development of new alveolar opacity -consolidation in the right upper lobe. Mild interstitial prominence. No significant effusion. Chest/Abdomen CTA 05/04/17 00:00 IMPRESSION: Dense consolidation is present in the lateral aspect of the left upper lobe. Patchy consolidation is present in the central and lateral aspects of the right upper lobe. Interstitial and ground-glass opacities are present throughout both upper lobes. Small bilateral pleural effusions are present. Diffuse mediastinal adenopathy, reactive appearing. Overall appearance suggests acute infectious etiology. No emboli visualized in the main pulmonary arteries or the segmental branches. Qualifiers PATEINT BEING DISCHARGED WITH ANY OF THE FOLLOWING DIAGNOSIS?: No
[2017-05-09] MEDS ORDERED: METHYLPREDNISOLONE INJ 40 MG/1 ML SDV IV SCH (18:00)
== END 2017-05-09 15:46 | disposition home or self-care (01) | DRG 871 ==
LOC: ER 09:58 → EH 12:05 → 5 16:06 → 4N 05-04 04:12 → 3S 05-04 18:48
PROVIDERS: ADMIT Pediatrics; ATTEND Pediatrics
PROC: 5A09457 Assistance with Respiratory Ventilation, 24-96 Consecutive Hours, Continuous Positive Airway Pressure (ICD-10-PCS; principal; 2017-05-04)
DX: A41.9 Sepsis, unspecified organism (principal); A48.1 Legionnaires' disease; E87.1 Hypo-osmolality and hyponatremia; J44.9 Chronic obstructive pulmonary disease, unspecified; F10.20 Alcohol dependence, uncomplicated; N40.0 Benign prostatic hyperplasia without lower urinary tract symptoms; I10 Essential (primary) hypertension; E87.6 Hypokalemia; K21.9 Gastro-esophageal reflux disease without esophagitis; M12.30 Palindromic rheumatism, unspecified site; R19.7 Diarrhea, unspecified; E87.79 Other fluid overload; T50.1X5A Adverse effect of loop [high-ceiling] diuretics, initial encounter; Z88.8 Allergy status to other drugs, medicaments and biological substances; Z90.49 Acquired absence of other specified parts of digestive tract; Z79.899 Other long term (current) drug therapy
CPT/HCPCS: 36415; 36600; 71010; 71275; 80048; 80053; 80202; 81001; 82803; 83605; 83735; 83880; 84132; 85025; 85027; 85610; 87040; 87070; 87086; 87205; 87493; 87804; 93005; 93010; 94640; 94660; 94667; 94668; 94799; 96360; 99291; G8978-GP; G8979-GP; J0456; J0696; J1644; J1940; J1956; J2060; J2543; J2920; J2930; J3370; J3475; J3480; J3490; J7030; J7040; J7060; J7512; J7620

== ENCOUNTER → 2017-06-07 | Outpatient (CLI) | payer MEDICARE, BC ==
--- NOTE | 2017-06-07 15:05 | RADIOLOGY REPORT (SQ) ---
EXAM DESCRIPTION: CHEST PA/LAT COMPLETED DATE/TIME: 06/07/2017 2:13 pm REASON FOR STUDY: PNEUMONIA COMPARISON: None. EXAM PARAMETERS: NUMBER OF VIEWS: two views TECHNIQUE: Digital Frontal and Lateral radiographic views of the chest acquired. RADIATION DOSE: NA LIMITATIONS: none FINDINGS: LUNGS AND PLEURA: Patchy airspace disease in the lateral aspect left upper lobe. Question cavitation of the infiltrate. Lungs are otherwise clear. No pleural effusion or pneumothorax. MEDIASTINUM AND HILAR STRUCTURES: No masses or contour abnormalities. HEART AND VASCULAR STRUCTURES: Heart normal size. No evidence for failure. BONES: No acute findings. HARDWARE: None in the chest. OTHER: No other significant finding. IMPRESSION: Airspace disease lateral aspect left upper lobe worrisome for pneumonia. Question cavit ation of the infiltrate. Follow-up chest films recommended TECHNICAL DOCUMENTATION: JOB ID: [id number] [employer]- All Rights Reserved
== END ==
LOC: RAD 13:59
PROVIDERS: ATTEND Internal Medicine
DX: J18.9 Pneumonia, unspecified organism (principal)
CPT/HCPCS: 71046

== ENCOUNTER → 2017-06-26 | Outpatient (CLI) | payer MEDICARE, BC ==
--- NOTE | 2017-06-26 13:15 | RADIOLOGY REPORT (SQ) ---
EXAM DESCRIPTION: CHEST PA/LAT COMPLETED DATE/TIME: 06/26/2017 11:28 am REASON FOR STUDY: PNEUMONIA DUE TO OTHER SPECIFIED BACTERIA COMPARISON: Chest film 05/03/2017, 06/07/2017 CT angio chest 05/04/2017 EXAM PARAMETERS: NUMBER OF VIEWS: two views TECHNIQUE: Digital Frontal and Lateral radiographic views of the chest acquired. RADIATION DOSE: NA LIMITATIONS: none FINDINGS: LUNGS AND PLEURA: Persistent airspace disease in the periphery of the left upper lobe with cavitation. This is similar compared to chest films on 06/07/2017. Remainder of the lungs are well inflated and free of focal infiltrates. No pleural effusion. No pne umothorax. MEDIASTINUM AND HILAR STRUCTURES: No masses or contour abnormalities. HEART AND VASCULAR STRUCTURES: Heart normal size. No evidence for failure. BONES: No acute findings. HARDWARE: None in the chest. OTHER: No other significant finding. IMPRESSION: Persistent cavitary infiltrate in the periphery of the left upper lobe about 5 cm in siz e, similar compared to chest films 06/07/2017. Atypical pneumonia or tuberculosis could be present TECHNICAL DOCUMENTATION: JOB ID: [id number] [employer] All Rights Reserved
== END ==
LOC: RAD 11:12
PROVIDERS: ATTEND Internal Medicine
DX: J15.8 Pneumonia due to other specified bacteria (principal)
CPT/HCPCS: 71046